=== PATIENT | female | born 1980 | race Caucasian/White ===

== ENCOUNTER 2016-10-15 09:05 | Day surgery (SDC) | payer OTHER ==
[2016-09-27 11:02] VITALS: BMI 41.1
[~2016-10-15 09:05] MED LIST: LACTATED RINGERS 1,000 ML IV SCH; LIDOCAINE 1% 20 ML VIAL (10MG/ML) FOR IV START INTRADERMA PRN
[2016-10-15] MEDS ORDERED: LIDOCAINE 1% 20 ML VIAL (10MG/ML) FOR IV START SQ ONE (09:28)
[2016-10-15 09:40] VITALS: TEMP 98.8
[2016-10-15] MEDS ORDERED: PROPOFOL 10 MG/ML 20 ML VIAL IV ONE (10:26)
[2016-10-15] MEDS ORDERED: LIDOCAINE 1% INJ 10MG/ML (20 ML MDV) ONE (10:26)
[2016-10-15] MEDS ORDERED: GLYCOPYRROLATE 0.2 MG/ML 2 ML VIAL ONE (10:26)
--- NOTE | 2016-10-15 10:43 | P.PCN ---
Date of Procedure: 10/15/16 Procedure(s) Performed: Procedure: Esophagogastroduodenoscopy and biopsy. Preoperative diagnosis: Chronic reflux symptoms and right upper quadrant pain and belching. Postoperative diagnosis: 1. Small sliding hiatal hernia with no obvious esophagitis or complicated reflux disease. 2. Mild antral gastritis. 3. Multiple biopsies obtained from the duodenum, antrum and esophagus. Preparation and sedation: Was provided by anesthesia. Brief clinical history: The patient is a 36-year-old female who is referred for this evaluation for the above reasons. Apparently, she had a cholecystectomy around a year ago and since that time she has been having belching and right upper quadrant pain in addition to her reflux issues. She has not responded to a variety of acid suppressive regimens. This evaluation is to assess for ulcer disease or other pathology. Procedure: With the patient on her left lateral decubitus position and after informed consent and adequate sedation, I passed the Olympus-GIF 160 video upper endoscope through the cricopharyngeus down the esophagus. GE junction was around 36 cm from the incisors and there was a small sliding hiatal hernia. The endoscope was then passed into the stomach which was insufflated with air and inspected in detail including the retroflex view in the cardia. There was some mottling and erythema in the antrum but no ulcers or erosions. Pyloric channel, duodenal bulb, post bulbar area and descending duodenum appeared within normal limits. Because of her symptoms, I obtained multiple biopsies from the duodenum, antrum and esophagus then the endoscope was withdrawn. The patient tolerated the procedure well. Plan: The patient was reassured. Will await biopsy results. She will follow- up with you as planned and further plans based on her course.
[2016-10-15 11:03] VITALS: BP 106/70; PULSE 98; RESP 18
== END 2016-10-15 11:25 | disposition home or self-care (01) ==
LOC: ORWHC2ENDO 09:05
DX: K44.9 Diaphragmatic hernia without obstruction or gangrene (principal); K29.50 Unspecified chronic gastritis without bleeding; K29.80 Duodenitis without bleeding; K21.0 Gastro-esophageal reflux disease with esophagitis; Z79.84 Long term (current) use of oral hypoglycemic drugs; Z79.1 Long term (current) use of non-steroidal anti-inflammatories (NSAID); Z79.899 Other long term (current) drug therapy; Z88.5 Allergy status to narcotic agent; Z87.891 Personal history of nicotine dependence
CPT/HCPCS: 81025; 88305; 88342; 43239; J2001; J2704

== ENCOUNTER → 2017-09-02 | Outpatient (CLI) | payer OTHER ==
--- NOTE | 2017-09-03 10:29 | MM ---
Reason for exam: screening (asymptomatic). History: Family history of breast cancer in maternal grandmother and breast cancer in maternal aunt. Taking hormonal contraceptives for 3 years. Physical Findings: A clinical breast exam by your physician is recommended on an annual basis and results should be correlated with mammographic findings. MG Screening Mammo w CAD Bilateral CC and MLO view(s) were taken. No prior studies available for comparison. The breast tissue is heterogeneously dense. This may lower the sensitivity of mammography. Benign calcifications bilaterally. No significant changes when compared with prior studies. ASSESSMENT: Benign, BI-RAD 2 RECOMMENDATION: Routine screening mammogram of both breasts in 1 year.
== END | disposition home or self-care (01) ==
LOC: RADMAMWWP 08:16
PROVIDERS: ATTEND Family Medicine
DX: Z12.31 Encounter for screening mammogram for malignant neoplasm of breast (principal)
CPT/HCPCS: 77067

== ENCOUNTER → 2018-02-14 | Outpatient (CLI) | payer OTHER ==
--- NOTE | 2018-02-14 14:50 | US ---
EXAMINATION TYPE: US thyroid st tissue head/neck DATE OF EXAM: 02/14/2018 COMPARISON: Ultrasound 03/19/2016 CLINICAL HISTORY: E04.1 Thyroid Nodule. Follow up thyroid nodule GLAND SIZE: Right Lobe: 4.7 x 1.3 x 1.8 cm Overall Parenchyma: homogenous Left Lobe: 4.7 x 1.0 x 1.6 cm Overall Parenchyma: homogeneous Isthmus Thickness: 0.3 cm NODULES RIGHT: # of nodules measured on right: 1 1. 0.7 X 0.6 x 0.6 cm hypoechoic solid nodule at the mid pole with poorly defined margins; . This nodule is wider than tall and shows no intranodular vascularity. Prior size: 0.7 x 0.5 x 0.6 cm LEFT: # of nodules measured on left: 1 1. 0.6 X 0.4 x 0.6 cm hypoechoic solid nodule at the mid pole with poorly defined margins; . This nodule is wider than tall and shows no intranodular vascularity. Prior size: 0.6 x 0.3 x 0.6 cm ISTHMUS: # of nodules measured in the isthmus: 0 Bilateral neck scanned, no evidence of lymphadenopathy. IMPRESSION: 1. Stable subcentimeter thyroid nodules
== END | disposition home or self-care (01) ==
LOC: RADUSWWP 13:58
PROVIDERS: ATTEND Family Medicine
DX: E04.2 Nontoxic multinodular goiter (principal)
CPT/HCPCS: 76536

== ENCOUNTER → 2019-03-06 | Day surgery (SDC) | payer OTHER ==
[2019-03-05 09:45] VITALS: BMI 41.1
[~2019-03-06] MED LIST changes: -LIDOCAINE 1% 20 ML VIAL (10MG/ML) FOR IV START INTRADERMA PRN; +PROPOFOL 10 MG/ML 20 ML VIAL IV ONE
[2019-03-06 11:08] VITALS: TEMP 97.5
--- NOTE | 2019-03-06 12:18 | P.PCN ---
Date of Procedure: 03/06/19 Procedure(s) Performed: BRIEF HISTORY: Patient is a 39-year-old pleasant white female scheduled for an elective colonoscopy as a part of screening for colorectal neoplasia. Her mother was diagnosed with colon cancer at age 65. PROCEDURE PERFORMED: Colonoscopy with biopsy and snare polypectomy. PREOPERATIVE DIAGNOSIS: Screening for colon cancer/family history of colon cancer. IV sedation per Anesthesia. PROCEDURE: After informed consent was obtained, the patient, was brought into the endoscopy unit. IV sedation was administered by Anesthesia under continuous monitoring. Digital rectal examination was normal. Initially the Olympus CF-160 flexible video colonoscope was then inserted in the rectum, gradually advanced into the cecum without any difficulty. Careful examination was performed as the scope was gradually being withdrawn. Ileocecal valve and the appendiceal orifice were visualized and appeared normal. Prep was excellent. Mucosa of the cecum, ascending colon, transverse colon, descending colon, sigmoid colon, appeared normal. In the proximal rectum there was a 5 mm polyp that was removed by snare polypectomy. Adjacent to this area the mucosa appeared very friable and edematous and the distal rectum there was another area. The mucosa appeared slightly, friable with polypoid-appearing mucosa and multiple biopsies were done from this areas. Retroflexion was performed in the rectum and no lesions were seen. The patient tolerated the procedure well. IMPRESSION: 5 mm proximal rectal polyp status post polypectomy Patchy areas of erythema noted in the distal rectum and proximal rectum with some mucosal friability and polypoid-appearing mucosa status post multiple b iopsies to rule out inflammatory bowel disease RECOMMENDATIONS: Findings of this examination were discussed with the patient as well as a family. She was advised to follow with the biopsy results and she'll be seen in office in 2 weeks. She can have a repeat screening colonoscopy every 5 years..
[2019-03-06 12:22] VITALS: RESP 17
[2019-03-06 12:28] VITALS: BP 113/77; PULSE 88
== END ==
LOC: ORWHC2ENDO 10:23
PROVIDERS: ATTEND Internal Medicine Gastroenterology
DX: Z12.11 Encounter for screening for malignant neoplasm of colon (principal); K62.1 Rectal polyp; K62.6 Ulcer of anus and rectum; Z80.0 Family history of malignant neoplasm of digestive organs; E06.3 Autoimmune thyroiditis; K21.9 Gastro-esophageal reflux disease without esophagitis; Z87.891 Personal history of nicotine dependence; Z90.49 Acquired absence of other specified parts of digestive tract; Z88.5 Allergy status to narcotic agent
CPT/HCPCS: 45385; 45380; 88305; 81025; J2704

== ENCOUNTER 2020-06-02 18:02 | Inpatient (IN) | payer OTHER ==
[2020-06-02] MEDS ORDERED: ACETAMINOPHEN TAB 500 MG TAB PO STA (18:46)
[2020-06-02] MEDS ORDERED: SODIUM CHLORIDE 0.9% 1,000 ML IV STA ×2 (18:46)
[2020-06-02] MEDS ORDERED: IBUPROFEN 800 MG TAB PO STA (18:46)
--- NOTE | 2020-06-02 18:56 | ED ---
Fever HPI - General Chief Complaint: Fever Stated Complaint: covid exposure Time Seen by Provider: 06/02/20 18:45 Source: patient, RN notes reviewed, old records reviewed Mode of arrival: ambulatory Limitations: no limitations - History of Present Illness Initial Comments: This is a 40-year-old female DF for evaluation presents today for evaluation regards to fever bodyaches and pains, nausea no vomiting diarrhea. No known sick contacts or travel history. Some cough persisting cough. Patient has no other significant medical history takes no medications nonsmoker MD Complaint: fever, malaise, weakness, other (Cough) -: days(s) (5) Temperature Source: subjective Associated Symptoms: chills, myalgias, cough, shortness of breath Treatments Prior to Arrival: none - Related Data Home Medications Medication Instructions Recorded Confirmed No Known Home Medications 03/05/19 03/06/19 Allergies Allergy/AdvReac Type Severity Reaction Status Date / Time oxycodone Allergy Rash/Hives Verified 06/02/20 18:32 Review of Systems ROS Statement: Those systems with pertinent positive or pertinent negative responses have been documented in the HPI. ROS Other: All systems not noted in ROS Statement are negative. Past Medical History Past Medical History: GERD/Reflux, Thyroid Disorder Additional Past Medical History / Comment(s): , ELIE'S, endometriosos. History of Any Multi-Drug Resistant Organisms: None Reported Past Surgical History: Cholecystectomy Additional Past Surgical History / Comment(s): colonoscopy Past Anesthesia/Blood Transfusion Reactions: Previous Problems w/ Anesthesia Additional Past Anesthesia/Blood Transfusion Reaction / Comment(s): woke up during last colonoscopy. Past Psychological History: No Psychological Hx Reported Smoking Status: Former smoker Past Alcohol Use History: None Reported Past Drug Use History: None Reported - Past Family History Mother Family Medical History: No Reported History General Exam Limitations: no limitations General appearance: alert, in no apparent distress Head exam: Present: atraumatic, normocephalic, normal inspection Eye exam: Present: normal appearance, PERRL, EOMI. Absent: scleral icterus, conjunctival injection, periorbital swelling ENT exam: Present: normal exam, mucous membranes moist Neck exam: Present: normal inspection. Absent: tenderness, meningismus, lymphadenopathy Respiratory exam: Present: normal lung sounds bilaterally. Absent: respiratory distress, wheezes, rales, rhonchi, stridor Cardiovascular Exam: Present: normal rhythm, tachycardia, normal heart sounds. Absent: systolic murmur, diastolic murmur, rubs, gallop, clicks GI/Abdominal exam: Present: soft, normal bowel sounds. Absent: distended, te nderness, guarding, rebound, rigid Extremities exam: Present: normal inspection, full ROM, normal capillary refill. Absent: tenderness, pedal edema, joint swelling, calf tenderness Back exam: Present: normal inspection Neurological exam: Present: alert, oriented X3, CN II-XII intact Psychiatric exam: Present: normal affect, normal mood Skin exam: Present: warm, dry, intact, normal color. Absent: rash Course Vital Signs 06/02/20 06/02/20 18:27 19:16 Temperature 101.2 F H Pulse Rate 127 H Respiratory 18 18 Rate Blood Pressure 91/61 O2 Sat by Pulse 100 Oximetry - Reevaluation(s) Reevaluation #1: 06/02/20 20:29 Medical record is reviewed Reevaluation #2: 06/02/20 20:29 Patient feels better with fever control and hydration Reevaluation #3: 06/02/20 20:29 [place] with patient regarding findings, questions answered Medical Decision Making - Medical Decision Making 40 female DF for evaluation patient has bilateral pneumonia fever rule out covert bodyaches and pains. Patient will be admitted for antibiotics, coronavirus testing - Lab Data Result diagrams: 06/02/20 19:06 06/02/20 19:06 Lab Results 06/02/20 06/02/20 06/02/20 Range/Units 19:06 19:06 19:06 WBC 3.8 (3.8-10.6) k/uL RBC 4.18 (3.80-5.40) m/uL Hgb 9.7 L (11.4-16.0) gm/dL Hct 31.6 L (34.0-46.0) % MCV 75.7 L (80.0-100.0) fL MCH 23.3 L (25.0-35.0) pg MCHC 30.7 L (31.0-37.0) g/dL RDW 13.1 (11.5-15.5) % Plt Count 320 (150-450) k/uL Neutrophils % 62 % Lymphocytes % 32 % Monocytes % 4 % Eosinophils % 0 % Basophils % 0 % Neutrophils # 2.3 (1.3-7.7) k/uL Lymphocytes # 1.2 (1.0-4.8) k/uL Monocytes # 0.2 (0-1.0) k/uL Eosinophils # 0.0 (0-0.7) k/uL Basophils # 0.0 (0-0.2) k/uL Hypochromasia Marked Poikilocytosis Slight PT 10.0 (9.0-12.0) sec INR 1.0 (<1.2) APTT 26.7 (22.0-30.0) sec Sodium 134 L (137-145) mmol/L Potassium 3.6 (3.5-5.1) mmol/L Chloride 100 (98-107) mmol/L Carbon Dioxide 24 (22-30) mmol/L Anion Gap 10 mmol/L BUN 8 (7-17) mg/dL Creatinine 0.75 (0.52-1.04) mg/dL Est GFR (CKD-EPI)AfAm >90 (>60 ml/min/1.73 sqM) Est GFR (CKD-EPI)NonAf >90 (>60 ml/min/1.73 sqM) Glucose 103 H (74-99) mg/dL Plasma Lactic Acid Jerel (0.7-2.0) mmol/L Calcium 8.2 L (8.4-10.2) mg/dL Magnesium 2.1 (1.6-2.3) mg/dL Total Bilirubin 0.2 (0.2-1.3) mg/dL AST 31 (14-36) U/L ALT 25 (4-34) U/L Alkaline Phosphatase 73 (38-126) U/L Lactate Dehydrogenase 430 (313-618) U/L C-Reactive Protein 11.1 H (<10.0) mg/L Total Protein 6.6 (6.3-8.2) g/dL Albumin 3.8 (3.5-5.0) g/dL 06/02/20 Range/Units 19:06 WBC (3.8-10.6) k/uL RBC (3.80-5.40) m/uL Hgb (11.4-16.0) gm/dL Hct (34.0-46.0) % MCV (80.0-100.0) fL MCH (25.0-35.0) pg MCHC (31.0-37.0) g/dL RDW (11.5-15.5) % Plt Count (150-450) k/uL Neutrophils % % Lymphocytes % % Monocytes % % Eosinophils % % Basophils % % Neutrophils # (1.3-7.7) k/uL Lymphocytes # (1.0-4.8) k/uL Monocytes # (0-1.0) k/uL Eosinophils # (0-0.7) k/uL Basophils # (0-0.2) k/uL Hypochromasia Poikilocytosis PT (9.0-12.0) sec INR (<1.2) APTT (22.0-30.0) sec Sodium (137-145) mmol/L Potassium (3.5-5.1) mmol/L Chloride (98-107) mmol/L Carbon Dioxide (22-30) mmol/L Anion Gap mmol/L BUN (7-17) mg/dL Creatinine (0.52-1.04) mg/dL Est GFR (CKD-EPI)AfAm (>60 ml/min/1.73 sqM) Est GFR (CKD-EPI)NonAf (>60 ml/min/1.73 sqM) Glucose (74-99) mg/dL Plasma Lactic Acid Jerel 0.8 (0.7-2.0) mmol/L Calcium (8.4-10.2) mg/dL Magnesium (1.6-2.3) mg/dL Total Bilirubin (0.2-1.3) mg/dL AST (14-36) U/L ALT (4-34) U/L Alkaline Phosphatase (38-126) U/L Lactate Dehydrogenase (313-618) U/L C-Reactive Protein (<10.0) mg/L Total Protein (6.3-8.2) g/dL Albumin (3.5-5.0) g/dL - EKG Data -: EKG Interpreted by Me (Injury shows sinus tachycardia 108 HI 150 QRS 92 QTC 452) - Radiology Data Radiology results: report reviewed (Chest x-rays positive for bilateral pneumonia), image reviewed Disposition Clinical Impression: Bilateral pneumonia, Fever Narrative: ro COVID Disposition: ADMITTED IP TO THIS [facility] Condition: Fair Referrals: Ayden Rankin MD [Primary Care Provider] - 1-2 days
[2020-06-02 19:30] LABS: Basophils % (A) 0 %; Eosinophils % (A) 0 %; HCT 31.6 % (34.0-46.0); HGB 9.7 gm/dL (11.4-16.0); Hypochromasia Marked; Lymphocytes # (A) 1.2 k/uL (1.0-4.8); Lymphocytes % (A) 32 %; MCH 23.3 pg (25.0-35.0); MCHC 30.7 g/dL (31.0-37.0); MCV 75.7 fL (80.0-100.0); Mean Platelet Volume 6.9; Monocytes # (A) 0.2 k/uL (0-1.0); Monocytes % (A) 4 %; Neutrophils # (A) 2.3 k/uL (1.3-7.7); Neutrophils % (A) 62 %; Platelet Count 320 k/uL (150-450); Poikilocytosis Slight; RBC 4.18 m/uL (3.80-5.40); RDW 13.1 % (11.5-15.5); WBC 3.8 k/uL (3.8-10.6)
[2020-06-02 19:34] LABS: Partial Thromboplastin Time 26.7 sec (22.0-30.0)
[2020-06-02 19:36] LABS: ALT 25 U/L (4-34); AST 31 U/L (14-36); African American GFR (CKD) >90 (>60 ml/min/1.73 sqM); Albumin 3.8 g/dL (3.5-5.0); Alkaline Phosphatase 73 U/L (38-126); Anion Gap 10 mmol/L; Blood Urea Nitrogen 8 mg/dL (7-17); C Reactive Protein 11.1 mg/L (<10.0); Calcium 8.2 mg/dL (8.4-10.2); Carbon Dioxide 24 mmol/L (22-30); Chloride 100 mmol/L (98-107); Glucose 103 mg/dL (74-99); LDH 430 U/L (313-618); Magnesium 2.1 mg/dL (1.6-2.3); Non-African American GFR(CKD) >90 (>60 ml/min/1.73 sqM); Potassium 3.6 mmol/L (3.5-5.1); Sodium 134 mmol/L (137-145); Total Bilirubin 0.2 mg/dL (0.2-1.3); Total Protein 6.6 g/dL (6.3-8.2)
--- NOTE | 2020-06-02 20:07 | XR ---
EXAMINATION: XR chest 1V portable DATE AND TIME: 06/02/2020 7:40 PM CLINICAL INDICATION: PHH; Suspected COVID-19 pneumonia TECHNIQUE: AP upright portable COMPARISON: None FINDINGS: The hemidiaphragms are elevated, consistent with low lung inflation at the moment of X-ray exposure. There are a few scattered small added ill-defined opacities, left greater than right. These are nonsp ecific radiographic findings which could represent subsegmental atelectasis vs. developing multifocal bronchopneumonia. The pleural spaces are negative. The cardiac silhouette is not enlarged. The remainder of the mediastinal silhouette is unremarkable. The skeletal structures and soft tissues are negative for acute findings. IMPRESSION: A few scattered bilateral pulmonary ill-defined opacities, as discussed.
[2020-06-02] MEDS ORDERED: ALBUTEROL NEBULIZED 2.5 MG/3 ML INHALATION PRN (20:23)
[2020-06-02] MEDS ORDERED: PNEUMONIA PROTOCOL UTILIZED 1 EACH MISC PO PRN (20:23)
[2020-06-02] MEDS ORDERED: AZITHROMYCIN 500 MG in SODIUM CHLORIDE 0.9% 250 ML IVPB STA (20:23)
[2020-06-02] MEDS ORDERED: ONDANSETRON 4 MG/2 ML VIAL IVP STA (22:19)
[2020-06-02] MEDS: SODIUM CHLORIDE 0.9% 1,000 ML IV SCH (23:00)
[2020-06-03] MEDS: SODIUM CHLORIDE 0.9% 1,000 ML IV SCH ×2 (04:17→19:33)
[2020-06-03] MEDS: ACETAMINOPHEN TAB 500 MG TAB PO PRN ×4 (04:22→22:53)
--- NOTE | 2020-06-03 08:18 | XR ---
EXAMINATION TYPE: XR chest 1V portable DATE OF EXAM: 06/03/2020 COMPARISON: Prior chest x-ray 06/02/2020 HISTORY: Pneumonia TECHNIQUE: Single frontal view of the chest is obtained. FINDINGS: There is no significant interval change. No pneumothorax or pleural effusion. Heart size i s stable. Lung volumes are low. Patchy density persists within the lungs. IMPRESSION: Correlate for pneumonia, edema.
[2020-06-03] MEDS: ENOXAPARIN 40 MG/0.4 ML SYRINGE SQ SCH (08:19)
--- NOTE | 2020-06-03 13:30 | P.CNPUL ---
History of Present Illness Consult date: 06/03/20 Requesting physician: Alonso Pink Reason for consult: cough, other Chief complaint: Cough, fever History of present illness: 40-year-old white female patient with past medical history of Leigh's thyroiditis, former smoker, endometriosis, presented for evaluation of cough, fever, body aches, nausea, to the emergency department on 06/02/2020. Patient's onset of symptoms was last Saturday 6 days ago. Apparently patient's was tested for COVID 19 on outpatient basis, though he was asymptomatic, but didn't have a positive result. He works for the [employer]. Patient was febrile in the emergency department with a temp of 101.2F, O2 sat was 98-100 percent on room air, no difficulty breathing, chest x-ray showed few scattered bilateral pulmonary opacities. EKG showed sinus tach. Labs showed a white blood cell count 3.8, hemoglobin is 9.7, INR is 1.0, sodium is 134, and the rest the electrolytes and renal profile were unremarkable. Plasma lactic acid 0.8. LDH was normal at 430, LFTs were within normal limits, CRP was 11, influenza screen was negative. She was started on combination of azithromycin and Rocephin for possibility of pneumonia, she was given some IV hydration, COVID 19 PCR test is pending at this time Review of Systems All systems: negative Constitutional: Reports malaise, Reports weakness, Denies chills, Denies fever Eyes: denies blurred vision, denies pain Ears, nose, mouth and throat: Denies headache, Denies sore throat Cardiovascular: Denies chest pain, Denies shortness of breath Respiratory: Reports cough Gastrointestinal: Denies abdominal pain, Denies diarrhea, Denies nausea, Denies vomiting Genitourinary: Denies dysuria, Denies hematuria Musculoskeletal: Denies myalgias Integumentary: Denies pruritus, Denies rash Neurological: Denies numbness, Denies weakness Psychiatric: Denies anxiety, Denies depression Endocrine: Denies fatigue, Denies weight change Past Medical History Past Medical History: GERD/Reflux, Thyroid Disorder Additional Past Medical History / Comment(s): Hashimotos, endometriosos. History of Any Multi-Drug Resistant Organisms: None Reported Past Surgical History: Cholecystectomy Additional Past Surgical History / Comment(s): colonoscopy Past Anesthesia/Blood Transfusion Reactions: Previous Problems w/ Anesthesia Additional Past Anesthesia/Blood Transfusion Reaction / Comment(s): woke up during last colonoscopy. Past Psychological History: No Psychological Hx Reported Smoking Status: Former smoker Past Alcohol Use History: None Reported Additional Past Alcohol Use History / Comment(s): STATES QUIT APPROX 2011, SMOKED 1PPD SINCE AGE 14 Past Drug Use History: None Reported - Past Family History Mother Family Medical History: No Reported History Medications and Allergies Home Medications Medication Instructions Recorded Confirmed Type No Known Home Medications 03/05/19 06/02/20 History Allergies Allergy/AdvReac Type Severity Reaction Status Date / Time oxycodone Allergy Rash/Hives Verified 06/02/20 20:35 Physical Exam Vitals: Vital Signs Temp Pulse Pulse Resp BP BP Pulse Ox 06/03/20 08:24 97 20 06/03/20 07:00 100.0 F H 97 20 99/65 95 06/03/20 01:45 98.1 F 88 20 94/60 98 06/02/20 22:40 98.2 F 84 20 101/69 94 L 06/02/20 22:27 98.9 F 68 18 122/68 98 06/02/20 20:32 99.0 F 82 18 136/78 98 06/02/20 19:16 18 06/02/20 18:27 101.2 F H 127 H 18 91/61 100 Intake and Output 06/02/20 06/03/20 06/03/20 22:59 06:59 14:59 Intake Total 200 Balance 200 Intake: Oral 200 Other: Voiding Method Toilet Toilet # Voids 1 Weight 108.862 kg GENERAL EXAM: Alert, very pleasant, obese white female on room air, with a pulse ox of 98%, comfortable in no apparent distress. HEAD: Normocephalic/atraumatic. EYES: Normal reaction of pupils, equal size. Conjunctiva pink, sclera white. NOSE: Clear with pink turbinates. THROAT: No erythema or exudates. NECK: No masses, no JVD, no thyroid enlargement, no adenopathy. CHEST: No chest wall deformity. Symmetrical expansion. LUNGS: Equal air entry with no crackles, wheeze, rhonchi or dullness. CVS: Regular rate and rhythm, normal S1 and S2, no gallops, no murmurs, no rubs ABDOMEN: Soft, nontender. No hepatosplenomegaly, normal bowel sounds, no guarding or rigidity. EXTREMITIES: No clubbing, no edema, no cyanosis, 2+ pulses and upper and lower extremities. MUSCULOSKELETAL: Muscle strength and tone normal. SPINE: No scoliosis or deformity SKIN: No rashes CENTRAL NERVOUS SYSTEM: Alert and oriented -3. No focal deficits, tone is normal in all 4 extremities. PSYCHIATRIC: Alert and oriented -3. Appropriate affect. Intact judgment and insight. Results - Laboratory Findings CBC and BMP: 06/02/20 19:06/02/20 19: PT/INR, D-dimer PT 10.0 sec (9.0-12.0) 06/02/20 19: INR 1.0 (<1.2) 06/02/20 19: Abnormal lab findings: Abnormal Labs 06/02/20 06/02/20 19: 19:06 Hgb 9.7 L Hct 31.6 L MCV 75.7 L MCH 23.3 L MCHC 30.7 L Sodium 134 L Glucose 103 H Calcium 8.2 L C-Reactive Protein 11.1 H - Diagnostic Findings Chest x-ray: report reviewed, image reviewed Additional studies: EKG reviewed Assessment and Plan Plan: Assessment: #1. Cough, fever, weakness, chest x-ray showing scattered bilateral pulmonary opacities, possibly related to community-acquired pneumonia, or COVID 19 pneumonitis, influenza was ruled out #2. History of Leigh's thyroiditis #3. History of endometriosis #4. Former smoker Plan: We'll continue with current antibiotic coverage, awaiting results of the COVID 19 testing, influenza has been ruled out, febrile pattern has improved, we'll add Decadron, continue with Norflex dose of Lovenox, we'll continue to follow I performed a history & physical examination of the patient and discussed their management with my nurse practitioner, Sydney Arias. I reviewed the nurse practitioner's note and agree with the documented findings and plan of care. Lung sounds are positive for diminished breath sounds The findings and the impression was discussed with the patient. I attest to the documentation by the nurse practitioner. Time with Patient: Greater than 30
[2020-06-03] MEDS: dexAMETHasone 4 MG TAB PO SCH (14:11)
--- NOTE | 2020-06-03 16:44 | P.HPIM ---
History of Present Illness H&P Date: 06/03/20 Chief Complaint: Fever History of presenting complaint: This is a pleasant 40-year-old patient of Dr. Ayden Rankin. Chronic stable medical conditions include GERD, Leigh's, endometriosis. Patient without any medications. Patient 5 days ago started off with fever. Running high fevers. Dry cough. Headaches. Patient's and 2 daughters ventilator get tested for COVID today and came back positive. Patient has lost a sense of smell and taste. Decreased appetite. Had some loose stools. Tired. COVID 19 testing pending. Review of systems: GEN.: Fever, tired EYES: None HEENT: Headaches NECK: None RESPIRATORY: Dry cough CARDIOVASCULAR: None GASTROINTESTINAL: Mild diarrhea GENITOURINARY: None MUSCULOSKELETAL: None LYMPHATICS: None HEMATOLOGICAL: None PSYCHIATRY: None NEUROLOGICAL: None Past medical history to include: GERD, Leigh's, endometriosis, Social history: Patient smoked a pack a day since 2014. She stopped in 2011. No alcohol. Ma rried. Family history: Reviewed, noncontributory to presentation Physical examination: VITAL SIGNS: Temperature 101.2, 127, 18, 91/61, 100% room air GENERAL: BMI 41.2, sitting up in chair, tired awake. EYES: Pupils equal. Conjunctiva normal. HEENT: External appearance of nose and ears normal, oral cavity grossly normal. NECK: JVD not raised; masses not palpable. HEART: First and second heart sounds are normal; no edema. LUNGS: Respiratory rate normal; clear to auscultation. ABDOMEN: Soft, nontender, liver spleen not palpable, no masses palpable. PSYCH: Alert and oriented x3; mood and affect normal. NEUROLOGICAL: Cranial nerves grossly intact; no facial asymmetry, power and s ensation grossly intact. LYMPHATICS: No lymph nodes palpable in the axilla and neck INVESTIGATIONS, reviewed in the clinical context: White count 3.8 hemoglobin 9.7 platelets 320 potassium 3.6 creatinine 0.75 LDH 4:30 CRP 11.1 Influenza A and B both negative EKG tracing personally reviewed by me-normal sinus rhythm Chest x-ray film personally reviewed by me-scattered densities Assessment: -This is a patient presents with 5 days of fever cough loss of smell and taste. Patient's 2 daughters not symptomatic Tested positive for COVID today. Patient is also the same are pending. Patient's has got checks x-ray findings though she has no hypoxia. -Morbid obesity BMI 41.2 -Anosmia -Sepsis from above pneumonia Plan: Patient started on Ventolin, Zithromax, ceftriaxone, dexamethasone, subcu Lovenox IV fluids zinc. Care was discussed with the patient. COVID 19 results are pending. Pulmonary and ID consulted. Patient is in droplet precautions Past Medical History Past Medical History: GERD/Reflux, Thyroid Disorder Additional Past Medical History / Comment(s): Hashimotos, endometriosos. History of Any Multi-Drug Resistant Organisms: None Reported Past Surgical History: Cholecystectomy Additional Past Surgical History / Comment(s): colonoscopy Past Anesthesia/Blood Transfusion Reactions: Previous Problems w/ Anesthesia Additional Past Anesthesia/Blood Transfusion Reaction / Comment(s): woke up during last colonoscopy. Past Psychological History: No Psychological Hx Reported Smoking Status: Former smoker Past Alcohol Use History: None Reported Additional Past Alcohol Use History / Comment(s): STATES QUIT APPROX 2011, SMOKED 1PPD SINCE AGE 14 Past Drug Use History: None Reported - Past Family History Mother Family Medical History: No Reported History Medications and Allergies Home Medications Medication Instructions Recorded Confirmed Type No Known Home Medications 03/05/19 06/02/20 History Allergies Allergy/AdvReac Type Severity Reaction Status Date / Time oxycodone Allergy Rash/Hives Verified 06/02/20 20:35 Physical Exam Vitals: Vital Signs Temp Pulse Pulse Resp BP BP Pulse Ox 06/03/20 08:24 97 20 06/03/20 07:00 100.0 F H 97 20 99/65 95 06/03/20 01:45 98.1 F 88 20 94/60 98 06/02/20 22:40 98.2 F 84 20 101/69 94 L 06/02/20 22:27 98.9 F 68 18 122/68 98 06/02/20 20:32 99.0 F 82 18 136/78 98 06/02/20 19:16 18 06/02/20 18:27 101.2 F H 127 H 18 91/61 100 Intake and Output 06/02/20 06/03/20 06/03/20 22:59 06:59 14:59 Intake Total 200 Balance 200 Intake: Oral 200 Other: Voiding Method Toilet Toilet # Voids 1 Weight 108.862 kg Results CBC & Chem 7: 06/02/20 19:06 06/02/20 19:06 Labs: Abnormal Lab Results - Last 24 Hours (Table) 06/02/20 06/02/20 Range/Units 19:06 19:06 Hgb 9.7 L (11.4-16.0) gm/dL Hct 31.6 L (34.0-46.0) % MCV 75.7 L (80.0-100.0) fL MCH 23.3 L (25.0-35.0) pg MCHC 30.7 L (31.0-37.0) g/dL Sodium 134 L (137-145) mmol/L Glucose 103 H (74-99) mg/dL Calcium 8.2 L (8.4-10.2) mg/dL C-Reactive Protein 11.1 H (<10.0) mg/L Thrombosis Risk Factor Assmnt - Choose All That Apply Any of the Below Risk Factors Present?: Yes Each Factor Represents 1 point: Age 41-60 years Other Risk Factors: No Other congenital or acquired thrombophilia - If yes, enter type in comment: No Thrombosis Risk Factor Assessment Total Risk Factor Score: 1 Thrombosis Risk Factor Assessment Level: Low Risk
[2020-06-03] MEDS ORDERED: AZITHROMYCIN 500 MG TAB PO SCH (21:00)
[2020-06-04] MEDS: SODIUM CHLORIDE 0.9% 1,000 ML IV SCH (01:13)
[2020-06-04] MEDS: dexAMETHasone 4 MG TAB PO SCH (07:14)
[2020-06-04] MEDS: ENOXAPARIN 40 MG/0.4 ML SYRINGE SQ SCH (07:15)
[2020-06-04] MEDS: ACETAMINOPHEN TAB 500 MG TAB PO PRN ×2 (07:31→11:04)
[2020-06-04 07:49] VITALS: BP 106/68; PULSE 92; RESP 18
--- NOTE | 2020-06-04 08:45 | P.CONS ---
History of Present Illness - Reason for Consult Consult date: 06/03/20 Fever Requesting physician: Alonso Pink - Chief Complaint Fever and body aches x 1 week - History of Present Illness Patient is 40-year-old female presenting to the ER at [facility] last evening for evaluation of fever and body aches and pains symptom has been going on for about a week started on Saturday, patient denies having any headache or significant URI symptoms patient did have mild cough which is dry in nature, it denies having any shortness of breath no nausea no vomiting and no abdominal pain she did have diarrhea, if the symptoms the patient was evaluated by the ER physician on arrival to the ER the patient did have a fever of 101F patient did have a normal white count and no lymphopenia, the patient did have normal liver enzymes CRP is mildly elevated to 11.1, lactic acid was normal, chest x-ray did show scattered bilateral pulmonary and defined opacities patient has been admitted to the hospital covid 19 test is pending, patient has been evaluated by pulmonary patient was started on Rocephin and Zithromax dexamethasone infectious disease was consulted for further management of antibiotic therapy Review of Systems Positive point has been mentioned in the HPI rest of the systems are negative Past Medical History Past Medical History: GERD/Reflux, Thyroid Disorder Additional Past Medical History / Comment(s): Hashimotos, endometriosos. History of Any Multi-Drug Resistant Organisms: None Reported Past Surgical History: Cholecystectomy Additional Past Surgical History / Comment(s): colonoscopy Past Anesthesia/Blood Transfusion Reactions: Previous Problems w/ Anesthesia Additional Past Anesthesia/Blood Transfusion Reaction / Comm: woke up during last colonoscopy. Past Psychological History: No Psychological Hx Reported Smoking Status: Former smoker Past Alcohol Use History: None Reported Additional Past Alcohol Use History / Comment(s): STATES QUIT APPROX 2011, SMOKED 1PPD SINCE AGE 14 Past Drug Use History: None Reported - Past Family History Mother Family Medical History: No Reported History Medications and Allergies Home Medications Medication Instructions Recorded Confirmed Type No Known Home Medications 03/05/19 06/02/20 History Allergies Allergy/AdvReac Type Severity Reaction Status Date / Time oxycodone Allergy Rash/Hives Verified 06/02/20 20:35 Physical Exam Vitals: Vital Signs Temp Pulse Pulse Resp BP BP Pulse Ox 06/03/20 08:24 97 20 06/03/20 07:00 100.0 F H 97 20 99/65 95 06/03/20 01:45 98.1 F 88 20 94/60 98 06/02/20 22:40 98.2 F 84 20 101/69 94 L 06/02/20 22:27 98.9 F 68 18 122/68 98 06/02/20 20:32 99.0 F 82 18 136/78 98 06/02/20 19:16 18 06/02/20 18:27 101.2 F H 127 H 18 91/61 100 Intake and Output 06/03/20 06/03/20 06/03/20 06:59 14:59 22:59 Intake Total 200 700 Balance 200 700 Intake: Intake, IV Titration 700 Amount Sodium Chloride 0.9% 1, 700 000 ml @ 100 mls/hr IV . Q10H [facility] Rx#:[id number] Oral 200 Other: Voiding Method Toilet Toilet # Voids 1 GENERAL DESCRIPTION: Middle-aged female lying in bed, no distress. No tachypnea or accessory muscle of respiration use. HEENT: Shows Pallor , no scleral icterus. Oral mucous membrane is dry. No pharyngeal erythema or thrush NECK: Trachea central, no thyromegaly. LUNGS: Unlabored breathing. Decreased intensity of breath sounds. No wheeze or crackle. HEART: S1, S2, regular rate and rhythm. No loud murmur ABDOMEN: Soft, no tenderness , guarding or rigidity, no organomegaly EXTREMITIES: No edema of feet. SKIN: No rash, no masses palpable. NEUROLOGICAL: The patient is awake, alert, oriented x3, mood and affect normal. Results CBC & Chem 7: 06/02/20 19:06 06/02/20 19:06 Labs: Abnormal Lab Results - Last 24 Hours (Table) 06/02/20 06/02/20 Range/Units 19:06 19:06 Hgb 9.7 L (11.4-16.0) gm/dL Hct 31.6 L (34.0-46.0) % MCV 75.7 L (80.0-100.0) fL MCH 23.3 L (25.0-35.0) pg MCHC 30.7 L (31.0-37.0) g/dL Sodium 134 L (137-145) mmol/L Glucose 103 H (74-99) mg/dL Calcium 8.2 L (8.4-10.2) mg/dL C-Reactive Protein 11.1 H (<10.0) mg/L Assessment and Plan Assessment: 1- patient presented to the hospital with fever body aches and dry cough in this patient who did have exposure to the who did tested positive for covid 19, likely representing acute covid 19 infection, however patient currently does not have shortness of breath and no need for supplemental oxygen (1) COVID-19 Current Visit: Yes Status: Acute Code(s): U07.1 - COVID-19 SNOMED Code(s): 307341288 (2) Fever Current Visit: Yes Status: Acute Code(s): R50.9 - FEVER, UNSPECIFIED SNOMED Code(s): 799367255 Plan: 1- patient will be treated with dexamethasone Lovenox Zinc and Zithromax 2- await covid 19 3- droplet isolation 4-if the patient drops her O2 sats or worsening respiratory symptoms she will be started on Remdisivir We will follow on clinical condition and cultures to further adjust medication if needed Thank you for this consultation will follow this patient with you Time with Patient: Greater than 30
[2020-06-04] MEDS ORDERED: ZINC SULFATE 220 MG CAP PO SCH (09:00)
[2020-06-04] MEDS ORDERED: ONDANSETRON 4 MG/2 ML VIAL IVP PRN (09:29)
[2020-06-04] MEDS ORDERED: Potassium Replacement Protocol 1 EACH MISC MISCELLANE PRN (09:31)
[2020-06-04] MEDS ORDERED: Magnesium Replacement Protocol 1 EACH MISC MISCELLANE PRN (09:31)
[2020-06-04 10:01] LABS: ALT 32 U/L (4-34); AST 40 U/L (14-36); African American GFR (CKD) >90 (>60 ml/min/1.73 sqM); Albumin 3.3 g/dL (3.5-5.0); Albumin/Globulin Ratio 1.3; Alkaline Phosphatase 67 U/L (38-126); Anion Gap 7 mmol/L; Blood Urea Nitrogen 6 mg/dL (7-17); C Reactive Protein 25.7 mg/L (<10.0); Calcium 7.8 mg/dL (8.4-10.2); Carbon Dioxide 23 mmol/L (22-30); Chloride 106 mmol/L (98-107); Globulin 2.6 g/dL; Glucose 108 mg/dL (74-99); LDH 513 U/L (313-618); Magnesium 2.1 mg/dL (1.6-2.3); Non-African American GFR(CKD) >90 (>60 ml/min/1.73 sqM); Potassium 3.6 mmol/L (3.5-5.1); Sodium 136 mmol/L (137-145); Total Bilirubin 0.2 mg/dL (0.2-1.3); Total Protein 5.9 g/dL (6.3-8.2)
[2020-06-04 10:04] LABS: Basophils % (A) 1 %; Eosinophils % (A) 1 %; HCT 27.1 % (34.0-46.0); HGB 8.5 gm/dL (11.4-16.0); Hypochromasia Marked; Lymphocytes # (A) 0.9 k/uL (1.0-4.8); Lymphocytes % (A) 24 %; MCH 24.3 pg (25.0-35.0); MCHC 31.5 g/dL (31.0-37.0); MCV 77.3 fL (80.0-100.0); Mean Platelet Volume 6.9; Monocytes # (A) 0.1 k/uL (0-1.0); Monocytes % (A) 3 %; Neutrophils # (A) 2.7 k/uL (1.3-7.7); Neutrophils % (A) 70 %; Platelet Count 288 k/uL (150-450); Poikilocytosis Slight; RDW 13.3 % (11.5-15.5); WBC 3.8 k/uL (3.8-10.6)
[2020-06-04] MEDS ORDERED: SODIUM CHLORIDE 0.9% 1,000 ML IV ONE (10:52)
[2020-06-04 11:13] VITALS: TEMP 100
--- NOTE | 2020-06-04 12:15 | P.PN ---
Subjective Progress Note Date: 06/04/20 Principal diagnosis: CoVID 19 pneumonitis 40-year-old white female patient with past medical history of Leigh's thyroiditis, former smoker, endometriosis, presented for evaluation of cough, fever, body aches, nausea, to the emergency department on 06/02/2020. Patient's onset of symptoms was last Saturday 6 days ago. Apparently patient's was tested for COVID 19 on outpatient basis, though he was asymptomatic, but didn't have a positive result. He works for the [employer]. Patient was febrile in the emergency department with a temp of 101.2F, O2 sat was 98-100 percent on room air, no difficulty breathing, chest x-ray showed few scattered bilateral pulmonary opacities. EKG showed sinus tach. Labs showed a white blood cell count 3.8, hemoglobin is 9.7, INR is 1.0, sodium is 134, and the rest the electrolytes and renal profile were unremarkable. Plasma lactic acid 0.8. LDH was normal at 430, LFTs were within normal limits, CRP was 11, influenza screen was negative. She was started on combination of azithromycin and Rocephin for possibility of pneumonia, she was given some IV hydration, COVID 19 PCR test is pending at this time The patient is seen today 06/04/2020 in follow-up on the regular medical floor. She is currently sitting up in bed. Awake and alert in no acute distress. Continues with a loose nonproductive cough. Continues with fevers at 101 earlier this morning. Currently 100. Blood cultures pending. She is maintai kellee O2 saturations in the 90s on room air. White count 3.8. Hemoglobin 8.5. Platelets 288. D-dimer 0.19. Sodium 136. Potassium 3.6. Creatinine 0.6. LDH 513. C-reactive protein 25.7. Coronavirus PCR positive. She states her and 17-year-old daughter are positive at home as well. Objective - Vital Signs Vital signs: Vital Signs Temp 100 F H 06/04/20 11:13 Pulse 92 06/04/20 07:00 Resp 18 06/04/20 07:00 BP 106/68 06/04/20 07:00 Pulse Ox 92 L 06/04/20 07:00 Intake & Output 06/03/20 06/04/20 06/04/20 18:59 06:59 18:59 Intake Total 700 200 Balance 700 200 Intake: Intake, IV Titration 700 Amount Sodium Chloride 0.9% 1, 700 000 ml @ 100 mls/hr IV . Q10H [facility] Rx#:[id number] Oral 200 Other: Voiding Method Toilet Toilet Toilet # Voids 1 - Exam GENERAL EXAM: Alert, active, pleasant 40-year-old female patient, on room air, comfortable in no apparent distress. HEAD: Normocephalic. EYES: Normal reaction of pupils, equal size. NOSE: Clear with pink turbinates. THROAT: No erythema or exudates. NECK: No masses, no JVD. CHEST: No chest wall deformity. LUNGS: Equal air entry with no crackles, wheeze, rhonchi or dullness. CVS: S1 and S2 normal with no audible murmur, regular rhythm. ABDOMEN: No hepatosplenomegaly, normal bowel sounds, no guarding or rigidity. SPINE: No scoliosis or deformity SKIN: No rashes CENTRAL NERVOUS SYSTEM: No focal deficits, tone is normal in all 4 extremities. EXTREMITIES: There is no peripheral edema. No clubbing, no cyanosis. Peripheral pulses are intact. - Labs CBC & Chem 7: 06/04/20 09:35 06/04/20 09:35 Labs: Abnormal Lab Results - Last 24 Hours (Table) 06/02/20 06/04/20 06/04/20 Range/Units 20:24 09:35 09:35 RBC 3.50 L (3.80-5.40) m/uL Hgb 8.5 L (11.4-16.0) gm/dL Hct 27.1 L (34.0-46.0) % MCV 77.3 L (80.0-100.0) fL MCH 24.3 L (25.0-35.0) pg Lymphocytes # 0.9 L (1.0-4.8) k/uL Sodium 136 L (137-145) mmol/L BUN 6 L (7-17) mg/dL Glucose 108 H (74-99) mg/dL Calcium 7.8 L (8.4-10.2) mg/dL AST 40 H (14-36) U/L C-Reactive Protein 25.7 H (<10.0) mg/L Total Protein 5.9 L (6.3-8.2) g/dL Albumin 3.3 L (3.5-5.0) g/dL Coronavirus (PCR) Detected H (Not Detected) Microbiology - Last 24 Hours (Table) 06/02/20 19:06 Blood Culture - Preliminary Blood No Growth after 24 hours Assessment and Plan Assessment: 1 Acute CoVID 19 pneumonitis 2 History of Leigh's thyroiditis 3 History of endometriosis. 4 Former smoker Plan: The patient was seen and evaluated by Dr. Fofana She is quite anxious to go home Cleared for discharge from the pulmonary standpoint Complete a ten-day course of dexamethasone Other medications per ID services Remain in quarantine Follow-up with her PCP I, the cosigning physician, performed a history & physical examination of the patient. Lungs sounds are clear. Maintaining good O2 saturations in the 90s on room air. I discussed the assessment and plan of care with my nurse practitioner, Renee Oh. I attest to the above note as dictated by her.
--- NOTE | 2020-06-04 13:49 | P.DS ---
Providers Date of admission: 06/02/20 20:23 Expected date of discharge: 06/04/20 Attending physician: Alonso Pink Consults: 06/02/20 20:23 Consult Physician Routine Consulting Provider: Ira Murillo Consult Reason/Comments: fever Do you want consulting provider notified?: Yes 06/02/20 20:56 Consult Physician Routine Consulting Provider: Jen Fofana Consult Reason/Comments: pna Do you want consulting provider notified?: Yes Primary care physician: Ayden Rankin [facility] Course: tory of presenting complaint: This is a pleasant 40-year-old patient of Dr. Ayden Rankin. Chronic stable medical conditions include GERD, Leigh's, endometriosis. Patient without any medications. Patient 5 days ago started off with fever. Running high fevers. Dry cough. Headaches. Patient's and 2 daughters ventilator get tested for COVID today and came back positive. Patient has lost a sense of smell and taste. Decreased appetite. Had some loose stools. Tired. COVID 19 testing pending. 06/04/20 Testing is positive for Covid 19, she is on room air saturating above 90%, no shortness of breath at rest. Still having loose stools although feels they are improving. Running low-grade fever, heart rate in 90s. Patient is very anxious to be discharged home. Currently on Decadron, she'll continue 10 day course upon discharge. Review of systems: GEN.: Fever, tired EYES: None HEENT: Headaches NECK: None RESPIRATORY: Dry cough CARDIOVASCULAR: None GASTROINTESTINAL: Mild diarrhea GENITOURINARY: None MUSCULOSKELETAL: None LYMPHATICS: None HEMATOLOGICAL: None PSYCHIATRY: None NEUROLOGICAL: None Physical examination: VITAL SIGNS: Temperature 101.2, 127, 18, 91/61, 100% room air GENERAL: BMI 41.2, sitting up in chair, tired awake. EYES: Pupils equal. Conjunctiva normal. HEENT: External appearance of nose and ears normal, oral cavity grossly normal. NECK: JVD not raised; masses not palpable. HEART: First and second heart sounds are normal; no edema. LUNGS: Respiratory rate normal; clear to auscultation. ABDOMEN: Soft, nontender, liver spleen not palpable, no masses palpable. PSYCH: Alert and oriented x3; mood and affect normal. NEUROLOGICAL: Cranial nerves grossly intact; no facial asymmetry, power and sensation grossly intact. LYMPHATICS: No lymph nodes palpable in the axilla and neck Physical exam was deferred to 2 Covid 19 isolation measures, patient was examined by pulmonary Assessment: -Acute Covid 19 pneumonitis -Morbid obesity BMI 41.2 -Loss of taste and smell -Diarrhea: Plan: Patient was asking to be discharged home, has diarrhea but feels is improving. She will continue course of Decadron for 10 days, prescription for Questran will be given for diarrhea. Encouraged adequate oral hydration. Patient Condition at Discharge: Fair Plan - Discharge Summary Discharge Rx Participant: No New Discharge Prescriptions: New dexAMETHasone [Hexadrol] 4 mg PO DAILY #10 tab Cholestyramine (with Sugar) [Questran] 4 gm PO TID PRN #30 packet PRN Reason: Diarrhea Discharge Medication List Cholestyramine (with Sugar) [Questran] 4 gm PO TID PRN #30 packet 06/04/20 [Rx] dexAMETHasone [Hexadrol] 4 mg PO DAILY #10 tab 06/04/20 [Rx] Follow up Appointment(s)/Referral(s): Ayden Rankin MD [Primary Care Provider] - 1 Week Patient Instructions/Handouts: Community Acquired Pneumonia (DC) Discharge Disposition: HOME SELF-CARE
--- NOTE | 2020-06-04 15:03 | PN ---
PROGRESS NOTE DATE OF SERVICE: 06/04/2020 REASON FOR FOLLOWUP: Acute COVID-19 pneumonia. INTERVAL HISTORY: Patient's overall fever pattern has improved though she did have a fever of 101 this morning. The patient is feeling better. She is breathing comfortably. The patient's cough has decreased in intensity and is mostly dry in nature. No chest pain. No nausea, no vomiting. No abdominal pain, no diarrhea. PHYSICAL EXAMINATION: Blood pressure 106/68 with a pulse of 92, temperature of 100. She is 92% on room air. General description is a middle-aged female up in the bed in no distress. Respiratory system: Unlabored breathing, clear to auscultation. No wheeze or crackle. Heart S1, S2. Regular rate and rhythm. Abdomen is soft, no tenderness. LABS: Hemoglobin 8.5, white count 3.8. BUN of 6, creatinine 0.60. CRP has gone high. IMPRESSION/PLAN: Patient with acute COVID-19 pneumonia/infection. The patient seemed to have shown clinical improvement, though still running a fever. The patient was seen by Pulmonary and and wanted to discharge the patient home. Recommend dexamethasone short course and close outpatient followup. Questions and concerns were answered. MMODL / IJN: [id number] /
[2020-06-04 17:49] LABS: Ferritin 16.7 ng/mL (10.0-291.0)
--- NOTE | 2020-06-06 08:57 | CDI ---
Documentation Clarification Form Date: 06/06/20 From: Miriam Tom Phone: If you have a question about this query, please contact Darlin Medina, Mobility Specialist at [phone] between 8am and 5pm. Admit Date: 06/02/20 Discharge Date:06/04/20 Patient Name: Kristine Parish Visit Number: [id number] ATTENTION: The Clinical Documentation Specialists (CDI) and [facility] Coding Staff appreciate your assistance in clarifying documentation. Please respond to the clarification below the line at the bottom and electronically sign. The CDI & [facility] Coding staff will review the response and follow-up if needed. Please note: Queries are made part of the Legal Health Record. If you have any questions, please contact the author of this message via ITS. Dear Dr. Ramirez The diagnosis sepsis was documented in the H&P, but is not noted in subsequent documentation. History/Risk Factors: Covid pneumonitis Clinical Indicators: Fever, tachycardia WBC: 3.8 Lactic Acid: 0.8 Blood Cultures: No growth Vital Signs on admission: T. 101.2, P. 127, R. 18, BP 91/61 Treatment: IV Rocephin, IV Zithromax Please clarify if the Sepsis was Present/active this admission Treated and resolved this admission Ruled out Other, please specify Clinically unable to determine My assessment is as per my documentation no additional documentation will be provided MTDD
== END 2020-06-04 14:29 | disposition home or self-care (01) | DRG 177 ==
LOC: EC 18:02 → 4SSUR 20:23
PROVIDERS: ADMIT Hospitalist; ATTEND Hospitalist
DX: U07.1 COVID-19 (principal); J12.89 Other viral pneumonia; Z68.41 Body mass index [BMI] 40.0-44.9, adult; E06.3 Autoimmune thyroiditis; E66.01 Morbid (severe) obesity due to excess calories; K21.9 Gastro-esophageal reflux disease without esophagitis; N80.9 Endometriosis, unspecified; Z87.891 Personal history of nicotine dependence; Z88.5 Allergy status to narcotic agent; Z90.49 Acquired absence of other specified parts of digestive tract; Z98.890 Other specified postprocedural states; Z87.19 Personal history of other diseases of the digestive system
CPT/HCPCS: 36415; 71045; 80053; 82728; 83605; 83615; 83735; 85025; 85379; 85610; 85730; 86140; 87040; 87502; 93005; 96361; 96365; 96367; 96375; 99285

== ENCOUNTER 2020-06-06 01:25 | Inpatient (IN) | payer OTHER ==
[2020-06-06] MEDS ORDERED: ACETAMINOPHEN TAB 500 MG TAB PO STA ×2 (01:49→02:03)
[2020-06-06] MEDS ORDERED: IBUPROFEN 600 MG TAB PO STA (01:49)
[2020-06-06] MEDS ORDERED: IBUPROFEN 400 MG TAB PO STA (02:03)
[2020-06-06] MEDS: SODIUM CHLORIDE 0.9% 1,000 ML IV SCH ×3 (02:19→17:16)
[2020-06-06] MEDS: SODIUM CHLORIDE 0.9% 500 ML 500 ML IV SCH (02:20)
--- NOTE | 2020-06-06 02:33 | XR ---
EXAMINATION TYPE: XR chest 1V portable DATE OF EXAM: 06/06/2020 COMPARISON: 06/03/2020 HISTORY: Pneumonia. Fever TECHNIQUE: FINDINGS: There are patchy bilateral peripheral pulmonary airspace infiltrates. Heart size is normal. There is no pleural effusion. There is no gross heart failure. IMPRESSION: Bilateral peripheral pneumonia is slightly worse than last exam.
[2020-06-06 02:36] LABS: Basophils % (A) 0 %; Eosinophils % (A) 0 %; HCT 26.1 % (34.0-46.0); HGB 8.1 gm/dL (11.4-16.0); Hypochromasia Marked; Lymphocytes # (A) 1.2 k/uL (1.0-4.8); Lymphocytes % (A) 22 %; MCH 23.7 pg (25.0-35.0); MCHC 31.1 g/dL (31.0-37.0); MCV 76.3 fL (80.0-100.0); Mean Platelet Volume 7.1; Monocytes # (A) 0.2 k/uL (0-1.0); Monocytes % (A) 3 %; Neutrophils # (A) 4.1 k/uL (1.3-7.7); Neutrophils % (A) 73 %; Platelet Count 314 k/uL (150-450); Poikilocytosis Slight; RBC 3.43 m/uL (3.80-5.40); RDW 13.6 % (11.5-15.5); WBC 5.5 k/uL (3.8-10.6)
[2020-06-06 02:37] LABS: VBG PH 7.47 (7.31-7.41)
--- NOTE | 2020-06-06 02:45 | ED ---
General Adult HPI - General Chief complaint: Shortness of Breath Stated complaint: SOB/Hallucinations Time Seen by Provider: 06/06/20 01:53 Source: patient Mode of arrival: wheelchair Limitations: no limitations - History of Present Illness Initial comments: 40-year-old female patient who recently tested positive for COVID-19 presents to the emergency department for hallucinations and low oxygen saturation. Patient was admitted to the hospital recently and diagnosed with Covid pneumonitis. She was discharged home on a 10 day course of Decadron. Patient states that this evening she was experiencing a "hallucination", states that she kept repeating the same sentence in her head over and over again and could not stop. She states that she had to wake up her significant other. He got her medication for her fever and checked her pulse ox at 83-84%. She states that she has not slept for the last two nights. She has been having symptoms of fever and upper respiratory symptoms since 05/27/20. She was positive for COVID-19 on 06/02 while admitted to the hospital. Patient reports persistent cough and fevers. Denies feeling short of breath. Denies any hemoptysis. Patient denies any recent rash, chest pain, abdominal pain, nausea, vomiting, constipation, back pain, numbness, tingling, dizziness, weakness, hematuria, dysuria, urinary urgency, urinary frequency, headache, visual changes, or any other complaints. - Related Data Previous Rx's Medication Instructions Recorded Cholestyramine (with Sugar) 4 gm PO TID PRN #30 packet 06/04/20 [Questran] dexAMETHasone [Hexadrol] 4 mg PO DAILY #10 tab 06/04/20 Allergies Allergy/AdvReac Type Severity Reaction Status Date / Time oxycodone Allergy Rash/Hives Verified 06/06/20 01:30 Review of Systems ROS Statement: Those systems with pertinent positive or pertinent negative responses have been documented in the HPI. ROS Other: All systems not noted in ROS Statement are negative. Past Medical History Past Medical History: GERD/Reflux, Thyroid Disorder Additional Past Medical History / Comment(s): Hashimotos, endometriosos. covid 19, History of Any Multi-Drug Resistant Organisms: None Reported Past Surgical History: Cholecystectomy Additional Past Surgical History / Comment(s): colonoscopy Past Anesthesia/Blood Transfusion Reactions: Previous Problems w/ Anesthesia Additional Past Anesthesia/Blood Transfusion Reaction / Comment(s): woke up du ring last colonoscopy. Past Psychological History: No Psychological Hx Reported Smoking Status: Former smoker Past Alcohol Use History: None Reported Past Drug Use History: None Reported - Past Family History Mother Family Medical History: No Reported History General Exam Limitations: no limitations General appearance: alert, in no apparent distress, other (This is a well-deve loped, well-nourished adult female patient in no acute distress. Vital signs upon presentation are temperature 101.7F, pulse 109, respirations 22, blood pressure 100/62, pulse ox 93% on room air.) Respiratory exam: Present: normal lung sounds bilaterally. Absent: respiratory distress, wheezes, rales, rhonchi, stridor Cardiovascular Exam: Present: normal rhythm, tachycardia, normal heart sounds. Absent: systolic murmur, diastolic murmur, rubs, gallop, clicks GI/Abdominal exam: Present: soft, normal bowel sounds. Absent: distended, tenderness, guarding, rebound, rigid Neurological exam: Present: alert, oriented X3, CN II-XII intact Psychiatric exam: Present: normal affect, normal mood Skin exam: Present: warm, dry, intact, normal color. Absent: rash Course Vital Signs 06/06/20 01:25 Temperature 101.7 F H Pulse Rate 109 H Respiratory 22 Rate Blood Pressure 100/62 O2 Sat by Pulse 93 L Oximetry EKG Findings - EKG Comments: EKG Findings:: EKG obtained at 02 43 shows normal sinus rhythm with an incomplet e right bundle branch block. Ventricular rate is 93, AR interval 164, QRS duration 96, QT 368, QTC 457. No evidence of ST elevation or depression. Medical Decision Making - Medical Decision Making 40-year-old female patient who recently tested positive for COVID-19 presents to the emergency department today for evaluation of low oxygen and hallucinations. Patient reports her oxygen saturation always between 8384% on room air. Patient arrived to the emergency department oxygen was 93% on room air she was febrile. Labs reviewed and did reveal hemoglobin of 8.1, d-dimer 0.19. VBG shows pH of 7.47, speaks CO2 of 33, HCO3 at 23, sodium is 135, BUN 6, glucose 110, calcium 7.9, AST 49, ALT 48. Chest x-ray showed that bilateral peripheral pneumonia is slightly worse than last exam. Patient's oxygen saturation did improve to 97-98% on 2 L. She will be admitted to the hospital for oxygen therapy and further monitoring. Patient is agreeable with this plan. - Lab Data Result diagrams: 06/06/20 02:06 06/06/20 02:06 Lab Results 06/06/20 06/06/20 06/06/20 Range/Units 02:06 02:06 02:06 WBC 5.5 (3.8-10.6) k/uL RBC 3.43 L (3.80-5.40) m/uL Hgb 8.1 L (11.4-16.0) gm/dL Hct 26.1 L (34.0-46.0) % MCV 76.3 L (80.0-100.0) fL MCH 23.7 L (25.0-35.0) pg MCHC 31.1 (31.0-37.0) g/dL RDW 13.6 (11.5-15.5) % Plt Count 314 (150-450) k/uL Neutrophils % 73 % Lymphocytes % 22 % Monocytes % 3 % Eosinophils % 0 % Basophils % 0 % Neutrophils # 4.1 (1.3-7.7) k/uL Lymphocytes # 1.2 (1.0-4.8) k/uL Monocytes # 0.2 (0-1.0) k/uL Eosinophils # 0.0 (0-0.7) k/uL Basophils # 0.0 (0-0.2) k/uL Hypochromasia Marked Poikilocytosis Slight PT 9.7 (9.0-12.0) sec INR 0.9 (<1.2) APTT 24.3 (22.0-30.0) sec D-Dimer 0.19 (<0.60) mg/L FEU VBG pH (7.31-7.41) VBG pCO2 (37-51) mmHg VBG HCO3 (24-28) mmol/L Sodium 135 L (137-145) mmol/L Potassium 3.7 (3.5-5.1) mmol/L Chloride 105 (98-107) mmol/L Carbon Dioxide 24 (22-30) mmol/L Anion Gap 6 mmol/L BUN 6 L (7-17) mg/dL Creatinine 0.64 (0.52-1.04) mg/dL Est GFR (CKD-EPI)AfAm >90 (>60 ml/min/1.73 sqM) Est GFR (CKD-EPI)NonAf >90 (>60 ml/min/1.73 sqM) Glucose 110 H (74-99) mg/dL Plasma Lactic Acid Jerel (0.7-2.0) mmol/L Calcium 7.9 L (8.4-10.2) mg/dL Total Bilirubin 0.4 (0.2-1.3) mg/dL AST 49 H (14-36) U/L ALT 48 H (4-34) U/L Alkaline Phosphatase 49 (38-126) U/L Total Protein 6.0 L (6.3-8.2) g/dL Albumin 3.2 L (3.5-5.0) g/dL 06/06/20 06/06/20 Range/Units 02:06 02:30 WBC (3.8-10.6) k/uL RBC (3.80-5.40) m/uL Hgb (11.4-16.0) gm/dL Hct (34.0-46.0) % MCV (80.0-100.0) fL MCH (25.0-35.0) pg MCHC (31.0-37.0) g/dL RDW (11.5-15.5) % Plt Count (150-450) k/uL Neutrophils % % Lymphocytes % % Monocytes % % Eosinophils % % Basophils % % Neutrophils # (1.3-7.7) k/uL Lymphocytes # (1.0-4.8) k/uL Monocytes # (0-1.0) k/uL Eosinophils # (0-0.7) k/uL Basophils # (0-0.2) k/uL Hypochromasia Poikilocytosis PT (9.0-12.0) sec INR (<1.2) APTT (22.0-30.0) sec D-Dimer (<0.60) mg/L FEU VBG pH 7.47 H (7.31-7.41) VBG pCO2 33 L (37-51) mmHg VBG HCO3 23 L (24-28) mmol/L Sodium (137-145) mmol/L Potassium (3.5-5.1) mmol/L Chloride (98-107) mmol/L Carbon Dioxide (22-30) mmol/L Anion Gap mmol/L BUN (7-17) mg/dL Creatinine (0.52-1.04) mg/dL Est GFR (CKD-EPI)AfAm (>60 ml/min/1.73 sqM) Est GFR (CKD-EPI)NonAf (>60 ml/min/1.73 sqM) Glucose (74-99) mg/dL Plasma Lactic Acid Jerel 1.3 (0.7-2.0) mmol/L Calcium (8.4-10.2) mg/dL Total Bilirubin (0.2-1.3) mg/dL AST (14-36) U/L ALT (4-34) U/L Alkaline Phosphatase (38-126) U/L Total Protein (6.3-8.2) g/dL Albumin (3.5-5.0) g/dL - EKG Data -: EKG Interpreted by Mi - Radiology Data Radiology results: report reviewed, image reviewed One view x-ray of the chest is obtained. Report was reviewed in its entirety. Impression by Dr. Pedro shows bilateral peripheral pneumonia slightly worsened last exam. Disposition Clinical Impression: Pneumonia due to COVID-19 virus, Hypoxia Disposition: ADMITTED IP TO THIS [facility] Condition: Serious Referrals: Ayden Rankin MD [Primary Care Provider] - 1-2 days Decision to Admit Reason: Admit from EC Decision Date: 06/06/20 Decision Time: 03:11
[2020-06-06 02:46] LABS: African American GFR (CKD) >90 (>60 ml/min/1.73 sqM); Albumin 3.2 g/dL (3.5-5.0); Anion Gap 6 mmol/L; Calcium 7.9 mg/dL (8.4-10.2); Carbon Dioxide 24 mmol/L (22-30); Chloride 105 mmol/L (98-107); Glucose 110 mg/dL (74-99); Non-African American GFR(CKD) >90 (>60 ml/min/1.73 sqM); Sodium 135 mmol/L (137-145); Total Bilirubin 0.4 mg/dL (0.2-1.3)
[2020-06-06 02:49] LABS: D-Dimer 0.19 mg/L FEU (<0.60); INR 0.9 (<1.2); Partial Thromboplastin Time 24.3 sec (22.0-30.0); Prothrombin Time 9.7 sec (9.0-12.0)
[2020-06-06 02:56] LABS: ALT 48 U/L (4-34); AST 49 U/L (14-36); Alkaline Phosphatase 49 U/L (38-126); Blood Urea Nitrogen 6 mg/dL (7-17); Potassium 3.7 mmol/L (3.5-5.1)
[2020-06-06] MEDS ORDERED: NALOXONE 0.4 MG/ML 1 ML VIAL IV PRN (03:02)
[2020-06-06] MEDS ORDERED: IBUPROFEN 400 MG TAB PO PRN (03:02)
[2020-06-06 03:07] LABS: Appearance,Urine Clear (Clear); Bilirubin,Urine Negative (Negative); Blood,Urine Negative (Negative); Color,Urine Yellow; Glucose,Urine (UA) Negative (Negative); Ketones,Urine Negative (Negative); Leukocyte Esterase,Urine Negative (Negative); Nitrite,Urine Negative (Negative); Protein,Urine Trace (Negative); Urobilinogen,Urine <2.0 mg/dL (<2.0)
--- NOTE | 2020-06-06 04:43 | P.HPIM ---
History of Present Illness H&P Date: 06/06/20 Patient is a 40-year-old female with recently diagnosed Covid who presented to the ED due to hypoxia and hallucinations. The patient was recently seen at the emergency room and was discharged home with Covid pneumonitis with a 10 day course of Decadron. Patient notes that her symptoms initially started on 05/28 when she developed a fever accompanied by hallucinations. The patient was subsequently diagnosed on 06/02. Patient reports continued hallucinations and feeling today as though she had to continue repeating the same sentence in her head over and over again with an inability to stop. She also notes feeling as though her legs were not her own at multiple times during the course of this illness and had these thoughts that someone was going to use her legs as a chandelier. Patient became concerned and felt somewhat short of breath at which time she checked her SpO2 which was 83%. She subsequently decided to come to the emergency room. Patient also reports ongoing cough minimally productive of green-yellow phlegm along with ongoing fevers. She denied nausea, vomiting, diarrhea. Reports she had diarrhea a few days ago but has since resolved. Denied headaches, dizziness, dysuria, or visual disturbances. Patient was febrile in the emergency room at 101.7 with a pulse of 109 and saturating at 93% on room air. Laboratory evaluation revealed hemoglobin 8.1, W c-collar 5.5, platelets 314, d-dimer 0.19, sodium 135, potassium 3.7, chloride 105, CO2 24, BUN 6, creatinine 0.64, glucose 110, lactic acid 1.3, AST 49, ALT 48, troponin less than 0.012. Chest x-ray revealed bilateral peripheral pneumonia worse than prior. EKG showing normal sinus rhythm at 93 bpm with an incomplete right bundle clarke block as reviewed by me. Review of Systems Pertinent positives and negatives as discussed in HPI, a complete review of systems was performed and all other systems are negative. Past Medical History Past Medical History: GERD/Reflux, Thyroid Disorder Additional Past Medical History / Comment(s): Hashimotos, endometriosos. covid 19, History of Any Multi-Drug Resistant Organisms: None Reported Past Surgical History: Cholecystectomy Additional Past Surgical History / Comment(s): colonoscopy Past Anesthesia/Blood Transfusion Reactions: Previous Problems w/ Anesthesia Additional Past Anesthesia/Blood Transfusion Reaction / Comment(s): woke up during last colonoscopy. Past Psychological History: No Psychological Hx Reported Smoking Status: Former smoker Past Alcohol Use History: None Reported Additional Past Alcohol Use History / Comment(s): STATES QUIT APPROX 2011, SMOKED 1PPD SINCE AGE 14 Past Drug Use History: None Reported - Past Family History Mother Family Medical History: No Reported History Medications and Allergies Home Medications Medication Instructions Recorded Confirmed Type Cholestyramine (with Sugar) 4 gm PO TID PRN #30 packet 06/04/20 Rx [Questran] dexAMETHasone [Hexadrol] 4 mg PO DAILY #10 tab 06/04/20 Rx Allergies Allergy/AdvReac Type Severity Reaction Status Date / Time oxycodone Allergy Rash/Hives Verified 06/06/20 01:30 Physical Exam Vitals: Vital Signs Temp Pulse Pulse Resp BP BP Pulse Ox 06/06/20 03:44 98.8 F 91 18 97/57 97 06/06/20 03:29 99.1 F 99 19 99/52 100 06/06/20 03:00 94 20 102/62 100 06/06/20 01:25 101.7 F H 109 H 22 100/62 93 L Intake and Output 06/05/20 06/05/20 06/06/20 14:59 22:59 06:59 Other: Weight 108 kg General: non toxic, no distress, appears at stated age, morbidly obese Derm: no unusual rashes/lesions no unusual ecchymoses, warm, dry Head: atraumatic, normocephalic, symmetric Eyes: EOMI, no lid lag, anicteric sclera, pupils equal round reactive to light ENT: Nose and ears atraumatic, no thrush, no pharyngeal erythema Neck: No thyromegaly, no cervical lymphadenopathy, trachea midline, supple Mouth: no lip lesion, mucus membranes moist Cardiovascular: S1S2 reg, no murmur, positive posterior tibial pulse bilateral, no edema, capillary refill less than 2 seconds Lungs: Scattered rhonchi, no rales or wheezing appreciated, no accessory muscle use Abdominal: soft, nontender to palpation, no guarding, no appreciable organomegaly, normal bowel sounds Ext: no gross muscle atrophy, muscle strength 5 out of 5 in all 4 extremities grossly, no contractures, Neuro: CN II-XI grossly intact, light touch intact all 4 extremities, finger to nose within normal limits, Psych: Alert, oriented, appropriate affect Results CBC & Chem 7: 06/06/20 02:06 06/06/20 02:06 Labs: Abnormal Lab Results - Last 24 Hours (Table) 06/06/20 06/06/20 06/06/20 Range/Units 02:06 02:06 02:06 RBC 3.43 L (3.80-5.40) m/uL Hgb 8.1 L (11.4-16.0) gm/dL Hct 26.1 L (34.0-46.0) % MCV 76.3 L (80.0-100.0) fL MCH 23.7 L (25.0-35.0) pg VBG pH (7.31-7.41) VBG pCO2 (37-51) mmHg VBG HCO3 (24-28) mmol/L Sodium 135 L (137-145) mmol/L BUN 6 L (7-17) mg/dL Glucose 110 H (74-99) mg/dL Calcium 7.9 L (8.4-10.2) mg/dL AST 49 H (14-36) U/L ALT 48 H (4-34) U/L Total Protein 6.0 L (6.3-8.2) g/dL Albumin 3.2 L (3.5-5.0) g/dL Urine Protein Trace H (Negative) 06/06/20 Range/Units 02:30 RBC (3.80-5.40) m/uL Hgb (11.4-16.0) gm/dL Hct (34.0-46.0) % MCV (80.0-100.0) fL MCH (25.0-35.0) pg VBG pH 7.47 H (7.31-7.41) VBG pCO2 33 L (37-51) mmHg VBG HCO3 23 L (24-28) mmol/L Sodium (137-145) mmol/L BUN (7-17) mg/dL Glucose (74-99) mg/dL Calcium (8.4-10.2) mg/dL AST (14-36) U/L ALT (4-34) U/L Total Protein (6.3-8.2) g/dL Albumin (3.5-5.0) g/dL Urine Protein (Negative) Thrombosis Risk Factor Assmnt - Choose All That Apply Any of the Below Risk Factors Present?: Yes Each Factor Represents 1 point: Age 41-60 years, Obesity (BMI >25) Thrombosis Risk Factor Assessment Total Risk Factor Score: 2 Thrombosis Risk Factor Assessment Level: Low Risk Assessment and Plan Plan: Covid-19 pneumonia -C/w Decadrone -Supplemental oxygen -IV fluids -Isolation precautions Hallucinations -Likely secondary to fever as patient reports she had them prior to starting Decadron Abnormal LFTs -Likely secondary to Covid infection -Monitor for now Microcytic anemia -Likely due to ongoing infection -Monitor CBC DVT prophylaxis -Lovenox The patient is admitted with an anticipated less than 2 midnight stay for evaluation of Covid pneumonia CODE STATUS: Full Code Discussed with: Patient, Anticipated discharge date: 1-[address]: Home A total of 35 minutes was spent on the care of this complex patient more than 50% of the time was spent in counseling and care coordination.
[2020-06-06 07:35] LABS: Magnesium 2.1 mg/dL (1.6-2.3)
[2020-06-06] MEDS: ENOXAPARIN 40 MG/0.4 ML SYRINGE SQ SCH (08:47)
[2020-06-06] MEDS: dexAMETHasone 2 MG TAB PO SCH (08:47)
[2020-06-06] MEDS ORDERED: dexAMETHasone 4 MG TAB PO SCH (09:00)
[2020-06-06] MEDS: ACETAMINOPHEN TAB 325 MG TAB PO PRN ×3 (11:35→22:30)
--- NOTE | 2020-06-06 12:03 | P.PN ---
Progress Note - Text Progress Note Date: 06/06/20 Patient admitted to the hospital with Covid 19 pneumonia and acute hypoxic respiratory failure. She is having persistent cough this morning. She was started on Decadron 4 mg daily. I would increase Decadron dose to 6 mg daily as directed by treatment guidelines. I would order Tessalon Perles as needed for cough. I would consult Dr. Fofana to consider Remdesivir course as her symptoms onset is less than 10 days. Continue supportive care otherwise. Repeat lab work in the morning. DVT prophylaxis with Lovenox.
[2020-06-06] MEDS: BENZONATATE 100 MG CAP PO PRN ×2 (12:17→20:53)
[2020-06-06] MEDS ORDERED: REMDESIVIR (EUA) 200 MG in SODIUM CHLORIDE 0.9% 250 ML IVPB ONE (14:00)
--- NOTE | 2020-06-06 14:02 | P.CNPUL ---
History of Present Illness Consult date: 06/06/20 Requesting physician: Cristy Richards Reason for consult: cough, abnormal CXR/CT Chief complaint: Cough, congestion, altered mental status, COVID 19 History of present illness: 40-year-old white female patient of Dr. Ayden Rankin, who was recently tested on outpatient basis for COVID 19 7-8 days ago, and was found to be positive, presented to the emergency department on 06/06/2020 for evaluation of altered mental status, and low oxygen saturation. She was recently in the hospital discharged home on 06/04/2020, at that time patient was positive for COVID 19, she was having symptoms of fever, dry cough, headaches, loss of sense of smell and taste, decreased appetite, loose stools and fatigue. Patient was treated with Rocephin and Zithromax, oral Decadron, and she was discharged home on 10 day course of oral Decadron, patient returned for reevaluation on 06/06/2020, she was febrile on presentation with a temp of 101.7F, 93% on room air, tachycardic sinus mechanism with a rate of 103 bpm. Lab work showed a white blood cell, 5.5, hemoglobin is 8.1, d-dimer was 0.19, sodium is 135, the rest of electrolytes were within normal limits, BUN is 6 creatinine 0.64, troponin is less than 0.012, proBNP was within normal limits at 210, urinalysis showed trace protein but negative for any sign of infection. Patient was started on oral Decadron, Mucinex, prophylactic doses of Lovenox, her fever was treated with Tylenol and Motrin, she is given gentle IV hydration and we will start the patient on Remdesivir. Review of Systems All systems: negative Constitutional: Denies chills, Denies fever Eyes: denies blurred vision, denies pain Ears, nose, mouth and throat: Denies headache, Denies sore throat Cardiovascular: Denies chest pain, Denies shortness of breath Respiratory: Reports congestion, Reports cough, Reports dyspnea Gastrointestinal: Denies abdominal pain, Denies diarrhea, Denies nausea, Denies vomiting Genitourinary: Denies dysuria, Denies hematuria Musculoskeletal: Denies myalgias Integumentary: Denies pruritus, Denies rash Neurological: Denies numbness, Denies weakness Psychiatric: Denies anxiety, Denies depression Endocrine: Denies fatigue, Denies weight change Past Medical History Past Medical History: GERD/Reflux, Thyroid Disorder Additional Past Medical History / Comment(s): Hashimotos, endometriosos. covid 19, History of Any Multi-Drug Resistant Organisms: None Reported Past Surgical History: Cholecystectomy Additional Past Surgical History / Comment(s): colonoscopy Past Anesthesia/Blood Transfusion Reactions: Previous Problems w/ Anesthesia Additional Past Anesthesia/Blood Transfusion Reaction / Comment(s): woke up du ring last colonoscopy. Past Psychological History: No Psychological Hx Reported Smoking Status: Former smoker Past Alcohol Use History: None Reported Additional Past Alcohol Use History / Comment(s): STATES QUIT APPROX 2011, SMOKED 1PPD SINCE AGE 14 Past Drug Use History: None Reported - Past Family History Mother Family Medical History: No Reported History Medications and Allergies Home Medications Medication Instructions Recorded Confirmed Type Cholestyramine (with Sugar) 4 gm PO TID PRN #30 packet 06/04/20 06/06/20 Rx [Questran] dexAMETHasone [Hexadrol] 4 mg PO DAILY #10 tab 06/04/20 06/06/20 Rx Allergies Allergy/AdvReac Type Severity Reaction Status Date / Time oxycodone Allergy Rash/Hives Verified 06/06/20 06:19 Physical Exam Vitals: Vital Signs Temp Pulse Pulse Resp BP BP Pulse Ox 06/06/20 12:00 98.5 F 95 20 128/61 98 06/06/20 08:00 98.5 F 86 20 106/55 92 L 06/06/20 03:44 98.8 F 91 18 97/57 97 06/06/20 03:29 99.1 F 99 19 99/52 100 06/06/20 03:00 94 20 102/62 100 06/06/20 01:25 101.7 F H 109 H 22 100/62 93 L Intake and Output 06/05/20 06/06/20 06/06/20 22:59 06:59 14:59 Intake Total 465 Balance 465 Intake: Oral 465 Other: # Voids 1 Weight 108 kg GENERAL EXAM: Alert, very pleasant, 40-year-old obese white female on 2 L of oxygen is a pulse ox of 98% loose congested cough HEAD: Normocephalic/atraumatic. EYES: Normal reaction of pupils, equal size. Conjunctiva pink, sclera white. NOSE: Clear with pink turbinates. THROAT: No erythema or exudates. NECK: No masses, no JVD, no thyroid enlargement, no adenopathy. CHEST: No chest wall deformity. Symmetrical expansion. LUNGS: Equal air entry with no crackles, wheeze, rhonchi or dullness. CVS: Regular rate and rhythm, normal S1 and S2, no gallops, no murmurs, no rubs ABDOMEN: Soft, nontender. No hepatosplenomegaly, normal bowel sounds, no guarding or rigidity. EXTREMITIES: No clubbing, no edema, no cyanosis, 2+ pulses and upper and lower extremities. MUSCULOSKELETAL: Muscle strength and tone normal. SPINE: No scoliosis or deformity SKIN: No rashes CENTRAL NERVOUS SYSTEM: Alert and oriented -3. No focal deficits, tone is normal in all 4 extremities. PSYCHIATRIC: Alert and oriented -3. Appropriate affect. Intact judgment and insight. Results - Laboratory Findings CBC and BMP: 06/06/20 02:06 06/06/20 02:06 PT/INR, D-dimer PT 9.7 sec (9.0-12.0) 06/06/20 02:06 INR 0.9 (<1.2) 06/06/20 02:06 D-Dimer 0.19 mg/L FEU (<0.60) 06/06/20 02:06 Abnormal lab findings: Abnormal Labs 06/06/20 06/06/20 06/06/20 02:06 02:06 02:06 RBC 3.43 L Hgb 8.1 L Hct 26.1 L MCV 76.3 L MCH 23.7 L VBG pH VBG pCO2 VBG HCO3 Sodium 135 L BUN 6 L Glucose 110 H Calcium 7.9 L AST 49 H ALT 48 H Total Protein 6.0 L Albumin 3.2 L Urine Protein Trace H 06/06/20 02:30 RBC Hgb Hct MCV MCH VBG pH 7.47 H VBG pCO2 33 L VBG HCO3 23 L Sodium BUN Glucose Calcium AST ALT Total Protein Albumin Urine Protein - Diagnostic Findings Chest x-ray: report reviewed, image reviewed Assessment and Plan Plan: Assessment: #1. Acute hypoxic respiratory failure related to COVID 19 pneumonitis #2. Altered mental status, hallucinations likely related to hypoxemia and fever, improved #3. Anemia, microcytic #4. Former smoker #5. History of endometriosis #6. History of Leigh's thyroiditis #7. Recent admission from 06/02/2020 through 06/04/2020 for COVID 19, was treated with Decadron, azithromycin and Rocephin Plan: Continue current medical treatment, oral Decadron, prophylactic dose Lovenox, Tessalon, antipyretics, Mucinex, we'll add Remdesivir. We'll continue following inflammatory markers, mental status has improved, patient remains on supplemental oxygen, will continue monitoring patient's dyspnea, and oxygen demands, we'll continue to follow I performed a history & physical examination of the patient and discussed their management with my nurse practitioner, Sydney Arias. I reviewed the nurse practitioner's note and agree with the documented findings and plan of care. Lung sounds are positive for diminished breath sounds, and diffuse wheezes The findings and the impression was discussed with the patient. I attest to the documentation by the nurse practitioner. Time with Patient: Greater than 30
[2020-06-06] MEDS ORDERED: CALCIUM CARBONATE 500 MG CHEWABLE PO PRN (17:00)
[2020-06-06] MEDS: guaiFENesin 600 MG TABLET.ER PO SCH (20:53)
[2020-06-06] MEDS: MELATONIN 5 MG TABLET PO PRN (22:26)
[2020-06-07] MEDS: SODIUM CHLORIDE 0.9% 1,000 ML IV SCH (06:39)
[2020-06-07] MEDS: PANTOPRAZOLE 40 MG TABLET PO SCH (06:39)
[2020-06-07] MEDS: ENOXAPARIN 40 MG/0.4 ML SYRINGE SQ SCH (08:31)
[2020-06-07] MEDS: guaiFENesin 600 MG TABLET.ER PO SCH ×2 (08:31→20:56)
[2020-06-07] MEDS: dexAMETHasone 2 MG TAB PO SCH (08:31)
[2020-06-07] MEDS: BENZONATATE 100 MG CAP PO PRN (08:32)
[2020-06-07] MEDS: ACETAMINOPHEN TAB 325 MG TAB PO PRN ×3 (08:32→23:30)
--- NOTE | 2020-06-07 12:44 | P.PN ---
Subjective Progress Note Date: 06/07/20 Principal diagnosis: COVID 19 pneumonia patient stated that this morning she had a coughing spell. She states that currently she is feeling okay. Patient is still requiring oxygen. 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 Psych - Calm and cooperative - Labs CBC & Chem 7: 06/06/20 02:06 06/06/20 02:06 Labs: Microbiology - Last 24 Hours (Table) 06/06/20 02:06 Blood Culture - Preliminary Blood No Growth after 24 hours Assessment and Plan Assessment: Covid-19 pneumonia -C/w Decadrone -Patient started on Remdesivir day 2/ -Supplemental oxygen -IV fluids -Isolation precautions Hallucinations -Likely secondary to fever as patient reports she had them prior to starting Decadron -Resolved Abnormal LFTs -Mild elevation -Likely secondary to Covid infection -Monitor for now Microcytic anemia -Likely due to ongoing infection -Monitor CBC DVT prophylaxis -Lovenox
--- NOTE | 2020-06-07 13:25 | P.PN ---
Subjective Progress Note Date: 06/07/20 Principal diagnosis: cough, congestion, altered mental status, COVID 19 40-year-old white female patient of Dr. Ayden Rankin, who was recently tested on outpatient basis for COVID 19 7-8 days ago, and was found to be positive, presented to the emergency department on 06/06/2020 for evaluation of altered mental status, and low oxygen saturation. She was recently in the hospital discharged home on 06/04/2020, at that time patient was positive for COVID 19, she was having symptoms of fever, dry cough, headaches, loss of sense of smell and taste, decreased appetite, loose stools and fatigue. Patient was treated with Rocephin and Zithromax, oral Decadron, and she was discharged home on 10 day course of oral Decadron, patient returned for reevaluation on 06/06/2020, she was febrile on presentation with a temp of 101.7F, 93% on room air, tachycardic sinus mechanism with a rate of 103 bpm. Lab work showed a white blood cell, 5.5, hemoglobin is 8.1, d-dimer was 0.19, sodium is 135, the rest of electrolytes were within normal limits, BUN is 6 creatinine 0.64, troponin is less than 0.012, proBNP was within normal limits at 210, urinalysis showed trace protein but negative for any sign of infection. Patient was started on oral Decadron, Mucinex, prophylactic doses of Lovenox, her fever was treated with Tylenol and Motrin, she is given gentle IV hydration and we will start the patient on Remdesivir. On 06/07/2020 patient seen in follow-up on selective care unit, she is resting comfortably in bed, she had one episode of low-grade fever early this morning, currently afebrile, she still continues to have some coughing spells, and her mentation seems to be appropriate, breathing is nonlabored, no hemoptysis, room air pulse ox was 91%.we started the patient on Remdesivir, she continues on oral Decadron, antipyretics, Tessalon Perles, and gentle IV hydration Objective - Vital Signs Vital signs: Vital Signs Temp 98 F 06/07/20 08:00 Pulse 82 06/07/20 08:00 Resp 20 06/07/20 11:07 BP 110/64 06/07/20 08:00 Pulse Ox 91 L 06/07/20 08:00 Intake & Output 06/06/20 06/07/20 06/07/20 18:59 06:59 18:59 Intake Total 690 240 Output Total 200 180 Balance 490 -180 240 Weight 107.6 kg Intake: Oral 690 240 Output: Urine 200 180 Other: Voiding Method Toilet # Voids 3 - Exam GENERAL EXAM: Alert, very pleasant, 40-year-old obese white female on 2 L of oxygen is a pulse ox of 94% loose congested cough HEAD: Normocephalic/atraumatic. EYES: Normal reaction of pupils, equal size. Conjunctiva pink, sclera white. NOSE: Clear with pink turbinates. THROAT: No erythema or exudates. NECK: No masses, no JVD, no thyroid enlargement, no adenopathy. CHEST: No chest wall deformity. Symmetrical expansion. LUNGS: Equal air entry with no crackles, wheeze, rhonchi or dullness. CVS: Regular rate and rhythm, normal S1 and S2, no gallops, no murmurs, no rubs ABDOMEN: Soft, nontender. No hepatosplenomegaly, normal bowel sounds, no guarding or rigidity. EXTREMITIES: No clubbing, no edema, no cyanosis, 2+ pulses and upper and lower extremities. MUSCULOSKELETAL: Muscle strength and tone normal. SPINE: No scoliosis or deformity SKIN: No rashes CENTRAL NERVOUS SYSTEM: Alert and oriented -3. No focal deficits, tone is normal in all 4 extremities. PSYCHIATRIC: Alert and oriented -3. Appropriate affect. Intact judgment and insight. - Labs CBC & Chem 7: 06/06/20 02:06 06/06/20 02:06 Labs: Microbiology - Last 24 Hours (Table) 06/06/20 02:06 Blood Culture - Preliminary Blood No Growth after 24 hours Assessment and Plan Plan: Assessment: #1. Acute hypoxic respiratory failure related to COVID 19 pneumonitis #2. Altered mental status, hallucinations likely related to hypoxemia and fever, improved #3. Anemia, microcytic #4. Former smoker #5. History of endometriosis #6. History of Leigh's thyroiditis #7. Recent admission from 06/02/2020 through 06/04/2020 for COVID 19, was treated with Decadron, azithromycin and Rocephin Plan: continue current medical treatment, today is day second of Remdesivir, continue with the anticoagulation, oral Decadron. Continue gentle IV hydration, antipyretics, fever pattern has improved, no worsening dyspnea, still gets coughing spells, she continues on Tessalon Perles. I performed a history & physical examination of the patient and discussed their management with my nurse practitioner, Sydney Arias. I reviewed the nurse practitioner's note and agree with the documented findings and plan of care. Lung sounds are positive for diminished breath sounds, and diffuse wheezes The findings and the impression was discussed with the patient. I attest to the documentation by the nurse practitioner. Time with Patient: Less than 30
[2020-06-07] MEDS: guaiFENesin-DM 100-10MG/5ML 10 ML CUP PO PRN ×2 (14:01→23:30)
[2020-06-07] MEDS: REMDESIVIR (EUA) 100 MG in SODIUM CHLORIDE 0.9% 250 ML IVPB SCH (14:01)
[2020-06-07] MEDS: MELATONIN 5 MG TABLET PO PRN (20:57)
[2020-06-08] MEDS: PANTOPRAZOLE 40 MG TABLET PO SCH (06:30)
[2020-06-08] MEDS: dexAMETHasone 2 MG TAB PO SCH (08:44)
[2020-06-08] MEDS: guaiFENesin 600 MG TABLET.ER PO SCH ×2 (08:45→20:48)
[2020-06-08] MEDS: ENOXAPARIN 40 MG/0.4 ML SYRINGE SQ SCH (08:46)
[2020-06-08] MEDS: SODIUM CHLORIDE 0.9% 1,000 ML IV SCH (08:46)
--- NOTE | 2020-06-08 11:25 | P.PN ---
Subjective Progress Note Date: 06/08/20 Principal diagnosis: COVID 19 pneumonia Patient was having a coughing spell and entered the room. She states that she feels the same as yesterday. She is still on 2 L nasal cannula. She has been afebrile in the past 48 hours. Objective - Vital Signs Vital signs: Vital Signs Temp 98.4 F 06/08/20 08:30 Pulse 72 06/08/20 08:30 Resp 16 06/08/20 08:30 BP 122/73 06/08/20 08:30 Pulse Ox 94 L 06/08/20 08:30 Intake & Output 06/07/20 06/08/20 06/08/20 18:59 06:59 18:59 Intake Total 540 150 420 Balance 540 150 420 Intake: Intake, IV Titration 150 Amount Sodium Chloride 0.9% 1, 150 000 ml @ 50 mls/hr IV . 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 Psych - Calm and cooperative - Labs CBC & Chem 7: 06/06/20 02:06 06/06/20 02:06 Labs: Microbiology - Last 24 Hours (Table) 06/06/20 02:06 Blood Culture - Preliminary Blood No Growth after 48 hours Assessment and Plan Assessment: Covid-19 pneumonia -C/w Decadrone -Patient started on Remdesivir day 3/ -Supplemental oxygen -IV fluids -Isolation precautions Hallucinations -Likely secondary to fever as patient reports she had them prior to starting Decadron -Resolved Abnormal LFTs -Mild elevation -Likely secondary to Covid infection -Monitor for now Microcytic anemia -Likely due to ongoing infection -Monitor CBC DVT prophylaxis -Lovenox
[2020-06-08 11:53] LABS: Basophils % (A) 0 %; Eosinophils % (A) 0 %; HCT 26.2 % (34.0-46.0); Hypochromasia Marked; Lymphocytes # (A) 1.5 k/uL (1.0-4.8); Lymphocytes % (A) 36 %; MCH 23.9 pg (25.0-35.0); MCHC 30.7 g/dL (31.0-37.0); Mean Platelet Volume 7.9; Monocytes # (A) 0.3 k/uL (0-1.0); Monocytes % (A) 8 %; Neutrophils # (A) 2.1 k/uL (1.3-7.7); Neutrophils % (A) 52 %; Platelet Count 426 k/uL (150-450); Poikilocytosis Slight; RBC 3.36 m/uL (3.80-5.40); RDW 13.5 % (11.5-15.5)
--- NOTE | 2020-06-08 12:41 | P.PN ---
Subjective Progress Note Date: 06/08/20 Principal diagnosis: Altered mental status secondary to CoVID 19 40-year-old white female patient of Dr. Ayden Rankin, who was recently tested on outpatient basis for COVID 19 7-8 days ago, and was found to be positive, presented to the emergency department on 06/06/2020 for evaluation of altered mental status, and low oxygen saturation. She was recently in the hospital discharged home on 06/04/2020, at that time patient was positive for COVID 19, she was having symptoms of fever, dry cough, headaches, loss of sense of smell and taste, decreased appetite, loose stools and fatigue. Patient was treated with Rocephin and Zithromax, oral Decadron, and she was discharged home on 10 day course of oral Decadron, patient returned for reevaluation on 06/06/2020, she was febrile on presentation with a temp of 101.7F, 93% on room air, tachycardic sinus mechanism with a rate of 103 bpm. Lab work showed a white blood cell, 5.5, hemoglobin is 8.1, d-dimer was 0.19, sodium is 135, the rest of electrolytes were within normal limits, BUN is 6 creatinine 0.64, troponin is less than 0.012, proBNP was within normal limits at 210, urinalysis showed trace protein but negative for any sign of infection. Patient was started on oral Decadron, Mucinex, prophylactic doses of Lovenox, her fever was treated with Tylenol and Motrin, she is given gentle IV hydration and we will start the patient on Remdesivir. On 06/07/2020 patient seen in follow-up on selective care unit, she is resting comfortably in bed, she had one episode of low-grade fever early this morning, currently afebrile, she still continues to have some coughing spells, and her mentation seems to be appropriate, breathing is nonlabored, no hemoptysis, room air pulse ox was 91%.we started the patient on Remdesivir, she continues on oral Decadron, antipyretics, Tessalon Perles, and gentle IV hydration The patient is seen today 06/08/2020 in follow-up on the selective care unit. She is currently awake and alert in no acute distress. Resting fairly comfortably in bed. Maintaining O2 saturations in the 90s on 2 L/m per nasal cannula. She's been afebrile. White count 4.0. Hemoglobin 8.0. She is curr ently on Remdesivir, lovenox, protonix, and dexamethasone. Objective - Vital Signs Vital signs: Vital Signs Temp 98.4 F 06/08/20 08:30 Pulse 72 06/08/20 08:30 Resp 16 06/08/20 08:30 BP 122/73 06/08/20 08:30 Pulse Ox 94 L 06/08/20 08:30 Intake & Output 06/07/20 06/08/20 06/08/20 18:59 06:59 18:59 Intake Total 540 150 420 Balance 540 150 420 Intake: Intake, IV Titration 150 Amount Sodium Chloride 0.9% 1, 150 000 ml @ 50 mls/hr IV . Q20H [facility] Rx#:[id number] Oral 540 420 Other: Voiding Method Toilet Toilet # Voids 1 - Exam GENERAL EXAM: Alert, pleasant, 40-year-old obese white female on 2 L of oxygen is a pulse ox of 94% HEAD: Normocephalic/atraumatic. EYES: Normal reaction of pupils, equal size. Conjunctiva pink, sclera white. NOSE: Clear with pink turbinates. THROAT: No erythema or exudates. NECK: No masses, no JVD, no thyroid enlargement, no adenopathy. CHEST: No chest wall deformity. Symmetrical expansion. LUNGS: Equal air entry with few scattered rhonchi CVS: Regular rate and rhythm, normal S1 and S2, no gallops, no murmurs, no rubs ABDOMEN: Soft, nontender. No hepatosplenomegaly, normal bowel sounds, no guarding or rigidity. EXTREMITIES: No clubbing, no edema, no cyanosis, 2+ pulses and upper and lower extremities. MUSCULOSKELETAL: Muscle strength and tone normal. SPINE: No scoliosis or deformity SKIN: No rashes CENTRAL NERVOUS SYSTEM: Alert and oriented -3. No focal deficits, tone is normal in all 4 extremities. PSYCHIATRIC: Alert and oriented -3. Appropriate affect. Intact judgment and insight. - Labs CBC & Chem 7: 06/08/20 06:58 06/06/20 02:06 Labs: Abnormal Lab Results - Last 24 Hours (Table) 06/08/20 Range/Units 06:58 RBC 3.36 L (3.80-5.40) m/uL Hgb 8.0 L (11.4-16.0) gm/dL Hct 26.2 L (34.0-46.0) % MCV 78.0 L (80.0-100.0) fL MCH 23.9 L (25.0-35.0) pg MCHC 30.7 L (31.0-37.0) g/dL Microbiology - Last 24 Hours (Table) 06/06/20 02:06 Blood Culture - Preliminary Blood No Growth after 48 hours Assessment and Plan Assessment: 1 Acute hypoxic respiratory failure related to COVID 19 pneumonitis 2 Altered mental status, hallucinations likely related to hypoxemia and fever, improved 3 Anemia, microcytic 4 Former smoker 5 History of endometriosis 6 History of Leigh's thyroiditis 7 Recent admission from 06/02/2020 through 06/04/2020 for COVID 19, was treated with Decadron, azithromycin and Rocephin Plan: The patient was seen and evaluated by Dr. Joaquin Continue the current treatment plan Repeat chest x-ray in a.m. Titrate down the FiO2 as tolerated We will continue to follow I, the cosigning physician, performed a history & physical examination of the patient. Lungs sounds with few scattered rhonchi. Maintaining good O2 sa turations in the 90s on 2 L/m per nasal cannula. I discussed the assessment and plan of care with my nurse practitioner, Renee Oh. I attest to the above note as dictated by her.
[2020-06-08 13:42] LABS: African American GFR (CKD) >90 (>60 ml/min/1.73 sqM); Anion Gap 6 mmol/L; Blood Urea Nitrogen 10 mg/dL (7-17); C Reactive Protein 50.7 mg/L (<10.0); Calcium 8.3 mg/dL (8.4-10.2); Carbon Dioxide 27 mmol/L (22-30); Chloride 105 mmol/L (98-107); Glucose 146 mg/dL (74-99); LDH 548 U/L (313-618); Non-African American GFR(CKD) >90 (>60 ml/min/1.73 sqM); Potassium 4.5 mmol/L (3.5-5.1); Sodium 138 mmol/L (137-145)
[2020-06-08] MEDS: REMDESIVIR (EUA) 100 MG in SODIUM CHLORIDE 0.9% 250 ML IVPB SCH (14:31)
--- NOTE | 2020-06-08 15:04 | CDI ---
Documentation Clarification Form Date: 06/08/2020 02:30:39 PM From: Mamie La RN, CCDS Admit Date: 06/06/2020 03:02:00 AM Patient Name: Kristine Parish Visit Number: [id number] Discharge Date: ATTENTION: The Clinical Documentation Specialists (CDI) and [facility] Coding Staff appreciate your assistance in clarifying documentation. Please respond to the clarification below the line at the bottom and electronically sign. The CDI & [facility] Coding staff will review the response and follow-up if needed. Please note: Queries are made part of the Legal Health Record. If you have any questions, please contact the author of this message via ITS. Dr. Tommie Joaquin Altered Mental Status was documented in your consult on 06/06 and continue in subsequent progress notes. Please provide further clarification for the etiology of the altered mental status. History/Risk Factors: COVID-19 Pneumonia, Hashimotos, Former smoker Clinical Indicators: 40-year-old resented treated 7-8 days ago found to be positive for COVID. 06/06/2020 for evaluation of altered mental status, and low oxygen saturation she was reported to have hallucinations "likely related to hypoxemia and fever". 06/06 Labs: WBC 5.5, HGB 8.1 HCT 26.1, Sodium 135; Blood Gas pH 7.47, pCO2 33, HCO3 23 06/06 CXR: Bilateral peripheral pneumonia is slightly worse than last exam (06/03/2020) 06/06 Vital signs: 100/62 109 22 101.7 93 % RA (ED assessment: patient reports she checked her pulse ox and was at 83-84 %) Treatment: Telemetry Monitoring Blood Cultures: Pending Isolation Precautions Monitor LFT'S daily, Monitor CBC Daily Dexamethasone 6 mg po daily Remdesivir 200 mg IVPB X1, then 100 mg IVPB daily (total 5 days) Motrin 400 mg po x1 Monitor O2 Sat's (Titrate response) Tessalon Perles 200 mg po tid/prn cough In your professional opinion, please clarify the etiology of the Altered Mental Status causing hallucinations, if known. Metabolic Encephalopathy from COVID-19 Pneumonia and fever Metabolic Encephalopathy and Hypoxic Encephalopathy from COVID-19 Pneumonia and Hypoxia Hypoxic Encephalopathy likely related to hypoxemia and fever Other condition (please specify) Unable to determine (Last Revision: November 2017) MTDD
--- NOTE | 2020-06-08 15:33 | CDI ---
Documentation Clarification Form Date: 06/08/2020 03:07:00 PM From: Mamie La RN, CCDS Admit Date: 06/06/2020 03:02:00 AM Patient Name: Kristine Parish Visit Number: [id number] Discharge Date: ATTENTION: The Clinical Documentation Specialists (CDI) and [facility] Coding Staff appreciate your assistance in clarifying documentation. Please respond to the clarification below the line at the bottom and electronically sign. The CDI & [facility] Coding staff will review the response and follow-up if needed. Please note: Queries are made part of the Legal Health Record. If you have any questions, please contact the author of this message via ITS. Dr. Jaron Guajardo patient presented with resent positive COVID-19 test, shortness of breath, hallucinations, fever, and cough. Please provide your clinical diagnosis of her symptoms. History/Risk Factors: COVID-19 Pneumonitis, Leigh's Thyroiditis, Endometriosis, Former smoker Clinical Indicators: 40-year-old with recent positive COVID pneumonitis present to ED on 06/06 with complaints of her pulse ox of 83-84 %. She has been having symptoms of fever and upper respiratory symptoms since 05/27/2020. She was positive for COVID-19 on 06/02. She reports persistent cough and fevers. She had normal lung sounds bilaterally per ED assessment. 06/06 Vital signs on admission: 100/62 109 22 101.7 93 % on RA 97-98% 2/L NC 06/06 EKG: Normal sinus rhythm with an incomplete right bundle branch block. Ventricular rate is 93 06/06 Labs: WBC 5.5 HGB 8.1, HCT 26.1 NA+ 135 06/06 Lactic acid: 1.3 06/06 CXR: Bilateral peripheral pneumonia slightly worsened from last exam (06/03/2020) 06/06 Blood cultures: Pending Other Clinical Indicators: Patient seen and treated 06/02-06/04 for COVID-19 Pneumonia Treatment: Telemetry Monitoring Blood Cultures: Pending Isolation Precautions Monitor LFT'S daily, Monitor CBC Daily Dexamethasone 6 mg po daily Remdesivir 200 mg IVPB X1, then 100 mg IVPB daily (total 5 days) Motrin 400 mg po x1 Monitor O2 Sat's (Titrate response) Tessalon Perles 200 mg po tid/prn cough In your professional opinion, please clarify if these findings signify one of the following conditions, whether the condition is POA, and cause, if known: Condition Sepsis secondary to COVID-19 Pneumonia, POA (present on admission) Sepsis ruled out Other, please specify Unable to determine SIRS Criteria (2 or more of the following may indicate SIRS): -Temperature < 96.8F (36C) or > 101.0F (38.3C) -Heart Rate > 90 bpm -Respiratory Rate > 20 breaths/min or PaCO2 < 32 mmHg -White Blood Cell Count > 12,000 or < 4,000 cells/mm3 or > 10% bands -Lactate >2.0 mmol/L (>4.0 is equivalent to septic shock) (Last Revision: November 2017) patient was NEVER seen or evaluated by me. MTDD
[2020-06-08] MEDS: guaiFENesin-DM 100-10MG/5ML 10 ML CUP PO PRN (20:48)
[2020-06-08] MEDS: BENZONATATE 100 MG CAP PO PRN (20:48)
[2020-06-08] MEDS: MELATONIN 5 MG TABLET PO PRN (20:48)
[2020-06-09] MEDS: SODIUM CHLORIDE 0.9% 1,000 ML IV SCH (06:35)
[2020-06-09] MEDS: ENOXAPARIN 40 MG/0.4 ML SYRINGE SQ SCH (08:29)
[2020-06-09] MEDS: guaiFENesin 600 MG TABLET.ER PO SCH ×2 (08:30→21:17)
[2020-06-09] MEDS: PANTOPRAZOLE 40 MG TABLET PO SCH (08:30)
[2020-06-09] MEDS: dexAMETHasone 2 MG TAB PO SCH (08:30)
[2020-06-09 08:46] LABS: Basophils % (A) 0 %; Eosinophils % (A) 0 %; HCT 27.6 % (34.0-46.0); HGB 8.5 gm/dL (11.4-16.0); Hypochromasia Marked; Lymphocytes # (A) 2.3 k/uL (1.0-4.8); Lymphocytes % (A) 37 %; MCH 23.6 pg (25.0-35.0); MCHC 30.7 g/dL (31.0-37.0); MCV 76.9 fL (80.0-100.0); Mean Platelet Volume 7.2; Monocytes # (A) 0.5 k/uL (0-1.0); Monocytes % (A) 7 %; Neutrophils # (A) 3.2 k/uL (1.3-7.7); Neutrophils % (A) 51 %; Platelet Count 514 k/uL (150-450); Poikilocytosis Slight; RBC 3.59 m/uL (3.80-5.40); RDW 13.5 % (11.5-15.5); WBC 6.2 k/uL (3.8-10.6)
[2020-06-09 08:49] LABS: African American GFR (CKD) >90 (>60 ml/min/1.73 sqM); Anion Gap 3 mmol/L; Blood Urea Nitrogen 12 mg/dL (7-17); Calcium 7.8 mg/dL (8.4-10.2); Carbon Dioxide 28 mmol/L (22-30); Chloride 107 mmol/L (98-107); Glucose 85 mg/dL (74-99); LDH 516 U/L (313-618); Magnesium 1.9 mg/dL (1.6-2.3); Non-African American GFR(CKD) >90 (>60 ml/min/1.73 sqM); Potassium 4.2 mmol/L (3.5-5.1); Sodium 138 mmol/L (137-145)
[2020-06-09 10:19] LABS: C Reactive Protein 30.5 mg/L (<10.0)
[2020-06-09 10:41] VITALS: RESP 20
--- NOTE | 2020-06-09 14:10 | XR ---
EXAMINATION TYPE: XR chest 1V portable DATE OF EXAM: 06/09/2020 CLINICAL HISTORY: Covid 19, fever TECHNIQUE: Portable upright view of the chest COMPARISON: 06/06/2020 chest radiograph FINDINGS: The cardiomediastinal silhouette is within normal limits for size. Patchy bilateral airspa ce opacities are not significantly changed. No pleural effusion, or pneumothorax seen. The osseous st ructures are intact. IMPRESSION: Bilateral patchy airspace opacities are unchanged versus 06/06/2020, consistent with hist ory of Covid 19 pneumonia.
[2020-06-09] MEDS: REMDESIVIR (EUA) 100 MG in SODIUM CHLORIDE 0.9% 250 ML IVPB SCH (14:13)
--- NOTE | 2020-06-09 14:15 | P.PN ---
Subjective Progress Note Date: 06/09/20 Principal diagnosis: Altered mental status secondary to CoVID 19 40-year-old white female patient of Dr. Ayden Rankin, who was recently tested on outpatient basis for COVID 19 7-8 days ago, and was found to be positive, presented to the emergency department on 06/06/2020 for evaluation of altered mental status, and low oxygen saturation. She was recently in the hospital discharged home on 06/04/2020, at that time patient was positive for COVID 19, she was having symptoms of fever, dry cough, headaches, loss of sense of smell and taste, decreased appetite, loose stools and fatigue. Patient was treated with Rocephin and Zithromax, oral Decadron, and she was discharged home on 10 day course of oral Decadron, patient returned for reevaluation on 06/06/2020, she was febrile on presentation with a temp of 101.7F, 93% on room air, tachycardic sinus mechanism with a rate of 103 bpm. Lab work showed a white blood cell, 5.5, hemoglobin is 8.1, d-dimer was 0.19, sodium is 135, the rest of electrolytes were within normal limits, BUN is 6 creatinine 0.64, troponin is less than 0.012, proBNP was within normal limits at 210, urinalysis showed trace protein but negative for any sign of infection. Patient was started on oral Decadron, Mucinex, prophylactic doses of Lovenox, her fever was treated with Tylenol and Motrin, she is given gentle IV hydration and we will start the patient on Remdesivir. On 06/07/2020 patient seen in follow-up on selective care unit, she is resting comfortably in bed, she had one episode of low-grade fever early this morning, currently afebrile, she still continues to have some coughing spells, and her mentation seems to be appropriate, breathing is nonlabored, no hemoptysis, room air pulse ox was 91%.we started the patient on Remdesivir, she continues on oral Decadron, antipyretics, Tessalon Perles, and gentle IV hydration The patient is seen today 06/08/2020 in follow-up on the selective care unit. She is currently awake and alert in no acute distress. Resting fairly comfortably in bed. Maintaining O2 saturations in the 90s on 2 L/m per nasal cannula. She's been afebrile. White count 4.0. Hemoglobin 8.0. She is curr ently on Remdesivir, lovenox, protonix, and dexamethasone. The patient is seen today 06/09/2020 and follow-up on the selective care unit. She remains awake and alert in no acute distress. Continues with a dry nonproductive cough. No fever. Maintaining O2 saturation in the 90s on room air. She's been hemodynamically stable. A culture reveals no growth. Count 6.2. Hemoglobin 8.5. Sodium 138. Potassium 4.2. Creatinine 0.58. LDH 516. C-reactive protein 30. She remains on Remdesivir, Lovenox, Protonix, dexamethasone. Tessalon Perles, Robitussin, Mucinex. Objective - Vital Signs Vital signs: Vital Signs Temp 98.4 F 06/09/20 07:00 Pulse 70 06/09/20 07:00 Resp 20 06/09/20 07:00 BP 121/68 06/09/20 07:00 Pulse Ox 94 L 06/09/20 07:00 Intake & Output 06/08/20 06/09/20 06/09/20 18:59 06:59 18:59 Intake Total 900 600 Balance 900 600 Intake: Oral 900 600 Other: Voiding Method Toilet Toilet # Voids 2 1 1 - Exam GENERAL EXAM: Alert, pleasant, 40-year-old obese female patient on room air with a pulse ox of 94% HEAD: Normocephalic/atraumatic. EYES: Normal reaction of pupils, equal size. Conjunctiva pink, sclera white. NOSE: Clear with pink turbinates. THROAT: No erythema or exudates. NECK: No masses, no JVD, no thyroid enlargement, no adenopathy. CHEST: No chest wall deformity. Symmetrical expansion. LUNGS: Equal air entry with few scattered rhonchi CVS: Regular rate and rhythm, normal S1 and S2, no gallops, no murmurs, no rubs ABDOMEN: Soft, nontender. No hepatosplenomegaly, normal bowel sounds, no guarding or rigidity. EXTREMITIES: No clubbing, no edema, no cyanosis, 2+ pulses and upper and lower extremities. MUSCULOSKELETAL: Muscle strength and tone normal. SPINE: No scoliosis or deformity SKIN: No rashes CENTRAL NERVOUS SYSTEM: Alert and oriented -3. No focal deficits, tone is normal in all 4 extremities. PSYCHIATRIC: Alert and oriented -3. Appropriate affect. Intact judgment and insight. - Labs CBC & Chem 7: 06/09/20 07:20 06/09/20 07:20 Labs: Abnormal Lab Results - Last 24 Hours (Table) 06/09/20 06/09/20 Range/Units 07:20 07:20 RBC 3.59 L (3.80-5.40) m/uL Hgb 8.5 L (11.4-16.0) gm/dL Hct 27.6 L (34.0-46.0) % MCV 76.9 L (80.0-100.0) fL MCH 23.6 L (25.0-35.0) pg MCHC 30.7 L (31.0-37.0) g/dL Plt Count 514 H (150-450) k/uL Calcium 7.8 L (8.4-10.2) mg/dL C-Reactive Protein 30.5 H (<10.0) mg/L Microbiology - Last 24 Hours (Table) 06/06/20 02:06 Blood Culture - Preliminary Blood No Growth after 72 hours Assessment and Plan Assessment: 1 Acute hypoxic respiratory failure related to COVID 19 pneumonitis 2 Altered mental status, hallucinations, likely related to hypoxic encephalopathy secondary to CoVID 19 3 Anemia, microcytic 4 Former smoker 5 History of endometriosis 6 History of Leigh's thyroiditis 7 Recent admission from 06/02/2020 through 06/04/2020 for COVID 19, was treated with Decadron, azithromycin and Rocephin Plan: The patient was seen and evaluated by Dr. Joaquin Chest x-ray and labs reviewed Continue the current treatment plan including Remdesivir We will continue to follow I, the cosigning physician, performed a history & physical examination of the patient. Lungs sounds with few scattered rhonchi. Maintaining good O2 saturations in the 90s on room air. I discussed the assessment and plan of care with my nurse practitioner, Renee Oh. I attest to the above note as dictated by her.
--- NOTE | 2020-06-09 17:41 | P.PN ---
Progress Note - Text Progress Note Date: 06/09/20 Presenting complaint: Fever History of presenting complaint: This is a pleasant 40-year-old patient of Dr. Ayden Rankin. Chronic stable medical conditions include GERD, Leigh's, endometriosis. Patient was admitted by me on June 03, tested positive for COVID 19 pneumonia. Discharged on June 04 by . Apparently patient was very keen on going home. She she was discharged on Decadron. Patient presented with some hallucinations hypoxia fever. Patient was then put back on Decadron, Lovenox, Remdesivir. Today-feeling much better. Slight cough. Eating better. Up to the bathroom. No fever. Review of systems: Was done for constitutional, cardiovascular, GI, pulmonary. relevant finding as above Active Medications Acetaminophen (Acetaminophen Tab 325 Mg Tab) 650 mg PO Q6HR PRN PRN Reason: Mild Pain or Fever > 100.5 Last Admin: 06/07/20 23:30 Dose: 650 mg Documented by: Benzonatate (Benzonatate 100 Mg Cap) 200 mg PO TID PRN PRN Reason: Cough Last Admin: 06/08/20 20:48 Dose: 200 mg Documented by: Calcium Carbonate/Glycine (Calcium Carbonate 500 Mg Chewable) 500 mg PO QID PRN PRN Reason: Heartburn Last Admin: 06/06/20 17:12 Dose: 500 mg Documented by: Dexamethasone (Dexamethasone 2 Mg Tab) 6 mg PO DAILY [facility] Last Admin: 06/09/20 08:30 Dose: 6 mg Documented by: Enoxaparin Sodium (Enoxaparin 40 Mg/0.4 Ml Syringe) 40 mg SQ DAILY [facility] Last Admin: 06/09/20 08:29 Dose: Not Given Documented by: Guaifenesin (Guaifenesin 600 Mg Tablet.Er) 1,200 mg PO Q12HR [facility] Last Admin: 06/09/20 08:30 Dose: 1,200 mg Documented by: Guaifenesin/Dextromethorphan (Guaifenesin-Dm 100-10mg/5ml 10 Ml Cup) 10 ml PO Q6H PRN PRN Reason: Cough Last Admin: 06/08/20 20:48 Dose: 10 ml Documented by: Remdesivir 100 mg/ Sodium (Chloride) 250 mls @ 250 mls/hr IVPB DAILY@1400 [facility] Stop: 06/10/20 14:59 Last Admin: 06/09/20 14:13 Dose: 250 mls/hr Documented by: Sodium Chloride (Saline 0.9%) 1,000 mls @ 50 mls/hr IV .Q20H [facility] Last Admin: 06/09/20 06:35 Dose: Not Given Documented by: Melatonin (Melatonin 5 Mg Tablet) 5 mg PO HS PRN PRN Reason: Insomnia Last Admin: 06/08/20 20:48 Dose: 5 mg Documented by: Naloxone HCl (Naloxone 0.4 Mg/Ml 1 Ml Vial) 0.2 mg IV Q2M PRN PRN Reason: Opioid Reversal Pantoprazole Sodium (Pantoprazole 40 Mg Tablet) 40 mg PO AC-BRKFST [facility] Last Admin: 06/09/20 08:30 Dose: Not Given Documented by: Physical examination: VITAL SIGNS: 98.4, 70, 20, 121/68, 94% on room air GENERAL: Sitting on bed, comfortable EYES: Pupils equal. Conjunctiva normal. Additional examination as per pulmonary and nursing HEART: First and second heart sounds are normal; no edema. LUNGS: Respiratory rate normal; few scattered rhonchi. ABDOMEN: Soft, nontender, liver spleen not palpable, no masses palpable. PSYCH: Alert and oriented x3; mood and affect normal. INVESTIGATIONS, reviewed in the clinical context: White count 6.2 hemoglobin 8.5 MCV 76.9 platelets 514 potassium 4.2 creatinine 0.58 CRP 30.5 Chest x-ray film personally reviewed by me-bilateral scattered infiltrates Assessment: -Acute severe COVID 19 pneumonia, POA -Acute delirium, POA from pneumonia -Microcytic anemia, chronic from heavy menorrhagia from endometriosis -Morbid obesity BMI 40.7 -Anosmia -Sepsis from above pneumonia, POA -Acute hypoxic respiratory failure from pneumonia, POA Plan: Continue current medication treatment plan including Remdesivir, Lovenox, dexamethasone. Discussed with the patient. Follow with pulmonary.
[2020-06-09] MEDS: MELATONIN 5 MG TABLET PO PRN (21:17)
[2020-06-10] MEDS: SODIUM CHLORIDE 0.9% 1,000 ML IV SCH (03:11)
[2020-06-10 06:22] LABS: C Reactive Protein 23.1 mg/L (<10.0)
[2020-06-10 08:29] VITALS: BP 100/64; PULSE 76; TEMP 98.2
[2020-06-10] MEDS: dexAMETHasone 2 MG TAB PO SCH (08:59)
[2020-06-10] MEDS: guaiFENesin 600 MG TABLET.ER PO SCH (08:59)
[2020-06-10] MEDS: PANTOPRAZOLE 40 MG TABLET PO SCH (08:59)
[2020-06-10] MEDS: ENOXAPARIN 40 MG/0.4 ML SYRINGE SQ SCH (09:01)
--- NOTE | 2020-06-10 12:24 | P.PN ---
Subjective Progress Note Date: 06/10/20 Principal diagnosis: cough, congestion, altered mental status, COVID 19 40-year-old white female patient of Dr. Ayden Rankin, who was recently tested on outpatient basis for COVID 19 7-8 days ago, and was found to be positive, presented to the emergency department on 06/06/2020 for evaluation of altered mental status, and low oxygen saturation. She was recently in the hospital discharged home on 06/04/2020, at that time patient was positive for COVID 19, she was having symptoms of fever, dry cough, headaches, loss of sense of smell and taste, decreased appetite, loose stools and fatigue. Patient was treated with Rocephin and Zithromax, oral Decadron, and she was discharged home on 10 day course of oral Decadron, patient returned for reevaluation on 06/06/2020, she was febrile on presentation with a temp of 101.7F, 93% on room air, tachycardic sinus mechanism with a rate of 103 bpm. Lab work showed a white blood cell, 5.5, hemoglobin is 8.1, d-dimer was 0.19, sodium is 135, the rest of electrolytes were within normal limits, BUN is 6 creatinine 0.64, troponin is less than 0.012, proBNP was within normal limits at 210, urinalysis showed trace protein but negative for any sign of infection. Patient was started on oral Decadron, Mucinex, prophylactic doses of Lovenox, her fever was treated with Tylenol and Motrin, she is given gentle IV hydration and we will start the patient on Remdesivir. On 06/07/2020 patient seen in follow-up on selective care unit, she is resting comfortably in bed, she had one episode of low-grade fever early this morning, currently afebrile, she still continues to have some coughing spells, and her mentation seems to be appropriate, breathing is nonlabored, no hemoptysis, room air pulse ox was 91%.we started the patient on Remdesivir, she continues on oral Decadron, antipyretics, Tessalon Perles, and gentle IV hydration On 06/10/2020 patient seen in follow-up on the general medical surgical floor. Room air pulse ox is 96%, patient is afebrile, hemodynamically stable, feeling much better today, breathing comfortably, her cough has improved. Vital signs are stable, patient has received 4 Remdesivir treatments, she continues on IV hydration of 0.9 normal saline at a rate of 50 ML per hour. Inflammatory markers are improving Objective - Vital Signs Vital signs: Vital Signs Temp 98.2 F 06/10/20 07:00 Pulse 76 06/10/20 07:00 Resp 20 06/09/20 21:15 BP 100/64 06/10/20 07:00 Pulse Ox 96 06/10/20 07:00 Intake & Output 06/09/20 06/10/20 06/10/20 18:59 06:59 18:59 Intake Total 1500 50 Balance 1500 50 Intake: Intake, IV Titration 50 Amount Sodium Chloride 0.9% 1, 50 000 ml @ 50 mls/hr IV . Q20H [facility] Rx#:[id number] Oral 1500 Other: # Voids 1 1 - Exam GENERAL EXAM: Alert, very pleasant, 40-year-old obese white female on room air with a pulse ox of 94% loose congested cough HEAD: Normocephalic/atraumatic. EYES: Normal reaction of pupils, equal size. Conjunctiva pink, sclera white. NOSE: Clear with pink turbinates. THROAT: No erythema or exudates. NECK: No masses, no JVD, no thyroid enlargement, no adenopathy. CHEST: No chest wall deformity. Symmetrical expansion. LUNGS: Equal air entry with no crackles, wheeze, rhonchi or dullness. CVS: Regular rate and rhythm, normal S1 and S2, no gallops, no murmurs, no rubs ABDOMEN: Soft, nontender. No hepatosplenomegaly, normal bowel sounds, no guarding or rigidity. EXTREMITIES: No clubbing, no edema, no cyanosis, 2+ pulses and upper and lower extremities. MUSCULOSKELETAL: Muscle strength and tone normal. SPINE: No scoliosis or deformity SKIN: No rashes CENTRAL NERVOUS SYSTEM: Alert and oriented -3. No focal deficits, tone is normal in all 4 extremities. PSYCHIATRIC: Alert and oriented -3. Appropriate affect. Intact judgment and insight. - Labs CBC & Chem 7: 06/09/20 07:20 06/09/20 07:20 Labs: Abnormal Lab Results - Last 24 Hours (Table) 06/10/20 Range/Units 05:42 C-Reactive Protein 23.1 H (<10.0) mg/L Microbiology - Last 24 Hours (Table) 06/06/20 02:06 Blood Culture - Preliminary Blood No Growth after 96 hours Assessment and Plan Plan: Assessment: #1. Acute hypoxic respiratory failure related to COVID 19 pneumonitis, resolved #2. Altered mental status, hallucinations likely related to hypoxemia and fever, improved #3. Anemia, microcytic #4. Former smoker #5. History of endometriosis #6. History of Leigh's thyroiditis #7. Recent admission from 06/02/2020 through 06/04/2020 for COVID 19, was treated with Decadron, azithromycin and Rocephin Plan: Continue current medical treatment, hemodynamically stable, afebrile, mental status has completely recovered, no acute events overnight, she is completing the course of the wound as it air, breathing comfortably, no nausea vomiting or diarrhea. Possible discharge home today or tomorrow. I performed a history & physical examination of the patient and discussed their management with my nurse practitioner, Sydney Arias. I reviewed the nurse practitioner's note and agree with the documented findings and plan of care. Lung sounds are positive for diminished breath sounds, and diffuse wheezes The findings and the impression was discussed with the patient. I attest to the documentation by the nurse practitioner. Time with Patient: Less than 30
[2020-06-10] MEDS: REMDESIVIR (EUA) 100 MG in SODIUM CHLORIDE 0.9% 250 ML IVPB SCH (13:39)
--- NOTE | 2020-06-11 00:08 | P.DS ---
Providers Date of admission: 06/06/20 03:02 Expected date of discharge: 06/10/20 Attending physician: Alonso Pink Consults: 06/06/20 07:23 Consult Physician Routine Consulting Provider: Jen Fofana Consult Reason/Comments: COVID+ Do you want consulting provider notified?: Yes Primary care physician: Ayden Rankin [facility] Course: Presenting complaint: Fever History of presenting complaint: This is a pleasant 40-year-old patient of Dr. Ayden Rankin. Chronic stable medical conditions include GERD, Leigh's, endometriosis. Patient was admitted by me on June 03, tested positive for COVID 19 pneumonia. Discharged on June 04 by . Apparently patient was very keen on going home. She she was discharged on Decadron. Patient presented with some hallucinations hypoxia fever. Patient was then put back on Decadron, Lovenox, Remdesivir. Today-much improved. Up and about. Minimal cough. Breathing well. Pulse oximeter on room air. Appetite is good. Discussed with the patient. Keen to go home. Consultation: Dr. Joaquin from pulmonary Physical examination: VITAL SIGNS: 98.2, 76, 16, 100/64, 96% room air GENERAL: Sitting on bed, comfortable INVESTIGATIONS, reviewed in the clinical context: CRP 23.1 Previous testing White count 6.2 hemoglobin 8.5 MCV 76.9 platelets 514 potassium 4.2 creatinine 0.58 Chest x-ray film personally reviewed by me-bilateral scattered infiltrates Assessment: -Acute severe COVID 19 pneumonia, POA -Acute delirium, POA from pneumonia -Microcytic anemia, chronic from heavy menorrhagia from endometriosis -Morbid obesity BMI 40.7 -Anosmia -Sepsis from above pneumonia, POA -Acute hypoxic respiratory failure from pneumonia, POA Disposition: Home. Quarantine instructions Patient Condition at Discharge: Stable Plan - Discharge Summary Discharge Rx Participant: No New Discharge Prescriptions: Continue Cholestyramine (with Sugar) [Questran Packet] 4 gm PO TID PRN #30 packet PRN Reason: Diarrhea Discontinued dexAMETHasone [Hexadrol] 4 mg PO DAILY #10 tab Discharge Medication List Cholestyramine (with Sugar) [Questran Packet] 4 gm PO TID PRN #30 packet 06/04/20 [Rx] Follow up Appointment(s)/Referral(s): Ayden Rankin MD [Primary Care Provider] - 06/16/20 11:30 am Jen Fofana MD [STAFF PHYSICIAN] - 07/27/20 2:00 pm Patient Instructions/Handouts: Community Acquired Pneumonia (DC) Activity/Diet/Wound Care/Special Instructions: covid 19 dc instructions Discharge Disposition: HOME SELF-CARE
== END 2020-06-10 15:02 | disposition home or self-care (01) | DRG 871 ==
LOC: EC 01:25 → 3SCARD 03:02 → 4SSUR 06-09 21:04
PROVIDERS: ADMIT Hospitalist; ATTEND Hospitalist
DX: A41.89 Other specified sepsis (principal); J12.89 Other viral pneumonia; U07.1 COVID-19; J96.01 Acute respiratory failure with hypoxia; Z68.41 Body mass index [BMI] 40.0-44.9, adult; R44.3 Hallucinations, unspecified; F05 Delirium due to known physiological condition; G93.1 Anoxic brain damage, not elsewhere classified; E66.01 Morbid (severe) obesity due to excess calories; D50.9 Iron deficiency anemia, unspecified; E06.3 Autoimmune thyroiditis; N80.9 Endometriosis, unspecified; R43.0 Anosmia; K21.9 Gastro-esophageal reflux disease without esophagitis; N92.0 Excessive and frequent menstruation with regular cycle; Z88.5 Allergy status to narcotic agent; Z90.49 Acquired absence of other specified parts of digestive tract; Z98.890 Other specified postprocedural states; Z87.891 Personal history of nicotine dependence
CPT/HCPCS: 36415; 71045; 80048; 80053; 81003; 82550; 82728; 82803; 83605; 83615; 83735; 83880; 84484; 85025; 85379; 85610; 85730; 86140; 87040; 93005; 96360; 99285

== ENCOUNTER → 2021-11-09 | Outpatient (CLI) | payer OTHER ==
--- NOTE | 2021-11-09 18:11 | MR ---
EXAMINATION TYPE: MR lspine/sacrum wo con DATE OF EXAM: 11/09/2021 COMPARISON: None HISTORY: Low back pain that radiates down left leg, nerve problem around rectum causing problems usin g bathroom for 2 months. History of surgery 2014 TECHNIQUE: Multiplanar, multisequence imaging of the lumbar spine and sacrum is performed without IV contrast. FINDINGS: Sagittal images of the lumbar spine show vertebral body heights and alignment to appear sat isfactory. The intervertebral discs demonstrate loss of disc height and signal greatest at L4-5 with associated spondylosis, there is loss of disc signal at L3-4. The conus medullaris is normal in posi tion and signal. Endplate discogenic marrow signal change present L4-5, suspect there is a transition al vertebral body Posterior disc bulge noted L4-5, there is some facet arthropathy change. Circumferential extension of endplate disc complex encroaches somewhat on the right foramen inferior aspect. Facet arthropathy ch anges also present at L3-4, L2-3 causing some posterior lateral mass effect on the thecal sac. There is no significant spinal stenosis. The sacrum shows no fracture. Bone marrow signal shows red marrow reconversion, correlate for possible anemia. Pelvis shows a left ovarian cyst incidentally, multiple nabothian cysts and possibly additional cysts present within the cervix region. Left ovarian cyst measures 3.9 cm. Common bile duct appears dilate d. IMPRESSION: Degenerative disc disease, correlate for possible anemia. Left ovarian cyst. Additional f indings above.
== END | disposition home or self-care (01) ==
LOC: RADMRIMAIN 15:16
PROVIDERS: ATTEND Family Medicine
DX: M51.16 Intervertebral disc disorders with radiculopathy, lumbar region (principal)
CPT/HCPCS: 72148; 72195

== ENCOUNTER → 2021-11-16 | Outpatient (CLI) | payer OTHER ==
--- NOTE | 2021-11-16 12:41 | CT ---
EXAMINATION TYPE: CT abdomen pelvis wo con DATE OF EXAM: 11/16/2021 COMPARISON: Ultrasound dated 01/26/2015 HISTORY: Severe vaginal bleeding. CT DLP: 1213 mGycm Automated exposure control for dose reduction was used. TECHNIQUE: Helical acquisition of images was performed from the lung bases through the pelvis. No IV contrast administration. FINDINGS: LUNG BASES: No significant abnormality is appreciated. LIVER/GB: Previous cholecystectomy. Enlarged liver measuring 21.2 cm. 2.5 x 2.9 cm focal central hepa tic hypodensity, incompletely characterized and could represent focal fat infiltration. Further elect richard ultrasound assessment can be considered. No other definite hepatic focal lesion by this nonenhanc ed CT scan. PANCREAS: No significant abnormality is seen. SPLEEN: No significant abnormality is seen. ADRENALS: No significant abnormality is seen. KIDNEYS: Grossly unremarkable. FREE AIR: No free air is visualized RETROPERITONEAL ADENOPATHY: None visualized REPRODUCTIVE ORGANS: Uterine cervix hypodensities measuring up to 2.3 cm, likely representing nabothi an cysts. No significant endometrial thickening or gross uterine lesion identified otherwise. Bilater al ovarian follicles/cysts measuring up to 2 cm on the left side. No gross adnexal lesion. Tiny air b ubble and suspected cystic area are seen at the superior aspect of the vagina, suboptimally assessed by this CT scan. Further ultrasound assessment can be considered. URINARY BLADDER: Nondistended PELVIC ADENOPATHY: None visualized. OSSEOUS STRUCTURES: Degenerative changes of the lower lumbar spine and sacroiliac joints. No aggress richard bone lesion. BOWEL: Unremarkable stomach, duodenum and small bowel. Scattered uncomplicated colonic diverticulosi s, otherwise grossly unremarkable colon. Normal appendix. OTHER: Small fat-containing umbilical hernia. No sizable ascites. IMPRESSION: Suspected uterine cervix nabothian cysts with air bubble and cystic area in the superior aspect of th e vagina as described above, incompletely characterized. Recommend further ultrasound assessment. No gross uterine or adnexal mass otherwise. Other incidental findings as described above.
== END | disposition home or self-care (01) ==
LOC: RADCTMAIN 11:49
PROVIDERS: ATTEND Family Medicine
DX: K83.9 Disease of biliary tract, unspecified (principal)
CPT/HCPCS: 74176

== ENCOUNTER → 2021-11-17 | Outpatient (CLI) | payer OTHER ==
--- NOTE | 2021-11-17 13:15 | US ---
EXAMINATION TYPE: US pelvis complete transvag DATE OF EXAM: 11/17/2021 COMPARISON: CT abdomen and pelvis from yesterday CLINICAL HISTORY: N83.209 OVARIAN CYST. TECHNIQUE: Transvaginal (TV) and Transabdominal (TA) . Transvaginal sonographic images of the pelvi s were acquired. Transabdominal sonographic images were medically necessary to better assess the fol lowing anatomy: ovaries. Date of LMP: 11-09-21 EXAM MEASUREMENTS: Uterus: 11.0 x 4.8 x 7.2 cm Endometrial Stripe: 0.7 cm Right Ovary: Obscured by overlying bowel gas/obesity Left Ovary: Obscured by overlying bowel gas/obesity Patient of very large body habitus, technically difficult limited study. 1. Uterus: Anteverted, multiple nabothians 2. Endometrium: wnl 3. Right Ovary: Obscured by overlying bowel gas/obesity 4. Left Ovary: Obscured by overlying bowel gas/obesity 5. Bilateral Adnexa: wnl 6. Posterior cul-de-sac: wnl Multiple nabothian cysts of varying size and shape throughout the cervix including dominant near 2.[address] to [address] abnormality. Heterogeneous uterus. Endometrial stripe measures 6 to 7 mm which is within normal limits. No free fluid in pelvis. Neither ovary clearly identified on CT. No suspicious extra ovarian adnexal masses on ultrasound. CT one day earlier showed symmetric sized ovaries with symmetric round low dense 2.0 cm lesions likely r eflecting prominent follicles or simple thin walled ovarian cyst. They cannot be reproduced on ultras ound images to further evaluate. IMPRESSION: As above.
== END | disposition home or self-care (01) ==
LOC: RADUSWWP 12:17
PROVIDERS: ATTEND Family Medicine
DX: N83.209 Unspecified ovarian cyst, unspecified side (principal)
CPT/HCPCS: 76830; 76856

== ENCOUNTER → 2021-11-17 | Outpatient (CLI) | payer OTHER ==
[~2021-11-17] MED LIST changes: +IRON SUCROSE 200 MG in SODIUM CHLORIDE 0.9% 100 ML IVPB NR; -LACTATED RINGERS 1,000 ML IV SCH; -PROPOFOL 10 MG/ML 20 ML VIAL IV ONE; +SODIUM CHLORIDE 0.9% 500 ML 500 ML in EMPTY BAG 1 BAG IV PRN
[2021-11-17 08:01] VITALS: BP 129/87; PULSE 98; RESP 16; TEMP 98.8
== END | disposition home or self-care (01) ==
LOC: PROCWHC3 07:33
PROVIDERS: ATTEND Nurse Practitioner Adult Health
DX: D50.9 Iron deficiency anemia, unspecified (principal)
CPT/HCPCS: 96365; J1756

== ENCOUNTER → 2021-12-18 | Outpatient (CLI) | payer OTHER ==
[2021-12-18 23:33] LABS: HCT 38.4 % (37.2-46.3); HGB 9.7 g/dL (12.0-15.0); MCH 18.8 pg (27.0-32.0); MCHC 25.3 g/dL (32.0-37.0); MCV 74.3 fL (80.0-97.0); Mean Platelet Volume 9.5 fL (9.5-12.2); NRBC Per 100 WBC 0 /100 WBCS (0.0-0.0); Platelet Count 508 X 10*3/uL (140-440); RBC 5.17 X 10*6/uL (4.10-5.20); RDW 26.9 % (11.5-14.5); WBC 7.85 X 10*3/uL (4.50-10.00)
[2021-12-19 00:04] LABS: Basophils # (A) 0.09 X 10*3/uL (0.00-0.10); Basophils % (A) 1.1 %; Eosinophils # (A) 0.27 X 10*3/uL (0.04-0.35); Eosinophils % (A) 3.4 %; Immature Grans, Automated 0.4 %; Lymphocytes # (A) 2.57 X 10*3/uL (0.90-5.00); Lymphocytes % (A) 32.7 %; Monocytes # (A) 0.52 X 10*3/uL (0.20-1.00); Monocytes % (A) 6.6 %; Neutrophils # (A) 4.37 X 10*3/uL (1.80-7.70); Neutrophils % (A) 55.8 %
[2021-12-19 00:05] LABS: Elliptocytes 2+; Microcytosis (M) 2+
[2021-12-19 02:55] LABS: Anion Gap 12.2 mmol/L (10.00-18.00); Blood Urea Nitrogen 7.4 mg/dL (9.0-27.0); Carbon Dioxide 23.2 mmol/L (20.0-27.5); Non-African American GFR(CKD) 96.6 (60.0-200.0); Potassium 4.4 mmol/L (3.5-5.5)
== END | disposition home or self-care (01) ==
LOC: LABWHC1 09:22
PROVIDERS: ATTEND Obstetrics & Gynecology
DX: Z01.812 Encounter for preprocedural laboratory examination (principal); D64.9 Anemia, unspecified; R10.2 Pelvic and perineal pain; N92.1 Excessive and frequent menstruation with irregular cycle; N94.10 Unspecified dyspareunia
CPT/HCPCS: 36415; 80051; 82565; 82947; 84520; 85025; 87086

== ENCOUNTER 2021-12-26 05:41 | Observation (INO) | payer OTHER ==
[2021-12-22 12:44] VITALS: BMI 38.6
[~2021-12-26 05:41] MED LIST changes: -IRON SUCROSE 200 MG in SODIUM CHLORIDE 0.9% 100 ML IVPB NR; +LACTATED RINGERS 1,000 ML IV SCH; +LIDOCAINE 1% (10MG/ML) FOR IV START INTRADERMA PRN; -SODIUM CHLORIDE 0.9% 500 ML 500 ML in EMPTY BAG 1 BAG IV PRN
[2021-12-26] MEDS ORDERED: ONDANSETRON 4 MG/2 ML VIAL IVP PRN ×2 (07:00→09:32)
[2021-12-26] MEDS ORDERED: HYDROmorphone 0.5 MG/0.5 ML SYRINGE IVP PRN (07:00)
[2021-12-26] MEDS ORDERED: MIDAZOLAM 2 MG/2 ML VIAL IV ONE (07:02)
[2021-12-26] MEDS ORDERED: SUCCINYLCHOLINE CHLORIDE 100 MG/5 ML SYR IV ONE (07:24)
[2021-12-26] MEDS ORDERED: LIDOCAINE 2% INJ 20 MG/ML (2 ML VIAL) ONE (07:24)
[2021-12-26] MEDS ORDERED: ROPIVACAINE 5 MG/ML 30 ML VIAL ONE (07:24)
[2021-12-26] MEDS ORDERED: ROCURONIUM 10 MG/ML (5 ML VIAL) IV ONE (07:24)
[2021-12-26] MEDS ORDERED: PROPOFOL 10 MG/ML 20 ML VIAL IV ONE (07:24)
[2021-12-26] MEDS ORDERED: MIDAZOLAM 2 MG/2 ML VIAL ONE (07:24)
[2021-12-26] MEDS ORDERED: DEXAMETHASONE SOD PHOSPHATE 4 MG/ML 1 ML VIAL ONE (07:24)
[2021-12-26] MEDS ORDERED: SODIUM CHLORIDE 0.9% (PF) 10 ML VIAL ONE (07:24)
[2021-12-26] MEDS ORDERED: HYDROmorphone (PF) 1 MG/ML ONE (07:24)
[2021-12-26] MEDS ORDERED: fentaNYL (PF) 50 MCG/ML 2 ML AMP ONE (07:24)
[2021-12-26] MEDS ORDERED: BUPIVACAINE (PF) 0.25% 30 ML VIAL SQ ONE (08:28)
[2021-12-26] MEDS ORDERED: LACTATED RINGERS 1,000 ML IV ONE (08:31)
[2021-12-26] MEDS ORDERED: diphenhydrAMINE 50 MG/ML 1 ML VIAL IVP PRN (09:32)
[2021-12-26] MEDS ORDERED: IBUPROFEN 600 MG TAB PO PRN (09:32)
[2021-12-26] MEDS ORDERED: Acetaminophen-Codeine 300-30mg TAB PO PRN ×2 (09:32)
[2021-12-26] MEDS ORDERED: SIMETHICONE 80 MG CHEWABLE PO PRN (09:32)
[2021-12-26] MEDS ORDERED: METOCLOPRAMIDE 5 MG/ML 2 ML VIAL IVP PRN (09:32)
[2021-12-26] MEDS ORDERED: LACTATED RINGERS 1,000 ML IV SCH (09:45)
--- NOTE | 2021-12-26 09:45 | P.OP ---
Date of Procedure: 12/26/21 Preoperative Diagnosis: #1. Menometrorrhagia #2. Dyspareunia #3. Chronic pelvic pain #4. Anemia Postoperative Diagnosis: Same Procedure(s) Performed: #1. Da Hernán robotically assisted laparoscopic hysterectomy with bilateral salpingectomy #2. Diagnostic cystoscopy Anesthesia: MALIK Surgeon: Mitch Rowe Carpenter Refrigerator #1: Kristine Benítez Estimated Blood Loss (ml): 50 IV fluids (ml): 1,000 Urine output (ml): 300 Pathology: other (Uterus and bilateral fallopian tubes) Condition: stable Disposition: PACU Operative Findings: Preoperatively the patient was noted to have a large cervix making complete containment with the cervical cup borderline. Intraoperatively, the uterus, tubes, and ovaries were normal to inspection though the uterus was generally enlarged. There were some bleb-like cystic structures on the left lower uterine segment which were removed with the uterus. After the procedure, the bladder was undamaged both from the laparoscopic perspective and from the cystoscopic perspective. The bilateral ureteral hallux were noted to be peristalsing. Description of Procedure: The patient was prepped and draped in usual fashion after general endotracheal anesthesia was administered by the anesthesiologist. A speculum was placed and the anterior lip of the cervix grasped with a single-tooth tenaculum. Serial dilation was carried out to admit a [facility] uterine manipulator with a large cervical cup which was placed in standard fashion. The bladder wasn't catheterized with a Roberts catheter. Attention was then turned to the abdomen where a site was selected approximately 3-4 cm above the umbilicus in the midline where an 8 mm incision was made in the transverse plane. An 8 mm da Hernán optical trocar was entered into the abdomen without difficulty and a pneumoperitoneum established. A site was selected approximate 10-12 cm lateral and 4-5 cm inferior on the left side where another 8 mm incision was made in the transverse plane. This allowed placement of an 8 mm da Hernán trocar under direct visualization without difficulty. The difference between the 2 trochars was bisected and a site selected approximately 3-4 cm above the level of the o ptical trocar where a 1 cm incision was made allowing insertion of oh 10 mm commissary assistant port under direct position without difficulty. A site similar to the left lower quadrant site was placed in the right lower quadrant. The robot was then docked to the patient in the left arm loaded with the [place] bipolar cautery forceps while the right arm was loaded with a monopolar cautery scissors. I then presented to the console. The left fallopian tube was dissected from the underlying ovary leaving the infundibulopelvic ligament intact. At the level of the uterus the utero-ovarian ligament ligament was cauterized and cut through and across the round ligament using bipolar cautery followed by monopolar cut. The bladder peritoneum was then developed across the midline. Uterine vasculature was skeletonized and the vessels cauterized with bipolar and then cut with the monopolar scissors. Attention was then turned to the patient's right side where a similar operation was carried out again without difficulty. The bladder peritoneum was developed to the midline and connected to the previous dissection. The bladder was then sharply and bluntly dissected from the underlying cervix and swept distally. After the uterine blood vessels had been thoroughly cauterized and cut bilaterally the vagina was entered with monopolar and bipolar cutting to identify the vaginal cup. The rim was then followed circumferentially around the uterus and the specimen removed into the vagina. There did appear to be a small piece of anterior cervix which may have been left behind but was incorporated into the closure of the vaginal cuff. The scissors were then replaced with a laparoscopic suturing device and a piece of 0 Stratafix suture was utilized to close the cuff from angle to angle in standard fashion. The cuff was then thoroughly irrigated and suctioned and appeared to be entirely hemostatic. I then returned to the patient remove the Roberts catheter and introduced a diagnostic cystoscope into the bladder. This was then distended with normal saline. There was no evidence of damage from either the laparoscopic or cystoscopic perspective. The bilateral ureteral Bedias were examined and noted to be peristalsing normally. The scope was removed and the Roberts catheter replaced. The robot was undocked and all ports removed. The pneumoperitoneum was thoroughly evacuated and the skin incisions closed with interrupted subcuticular stitches of 4-0 Vicryl followed by half-inch Steri- Strips and Band-Aids. Estimated blood loss for the case was approximately 50 mL or less. There were no complications. All sponge, instrument, and needle counts were correct. The patient tolerated the procedure well and proceeded to the recovery room in stable condition.
[2021-12-26 10:06] VITALS: RESP 16
[2021-12-26] MEDS: KETOROLAC 15 MG/ML 1 ML VIAL IVP PRN ×2 (15:48→21:38)
[2021-12-26] MEDS ORDERED: SENNOSIDES-DOCUSATE SODIUM 1 EACH TAB PO SCH (21:00)
[2021-12-26 21:07] VITALS: TEMP 98.2
[2021-12-27 05:56] LABS: Anisocytosis Moderate; Basophils # (A) 0.1 k/uL (0-0.2); Basophils % (A) 0 %; Eosinophils % (A) 0 %; HCT 37.2 % (34.0-46.0); HGB 10.5 gm/dL (11.4-16.0); Hypochromasia Marked; Lymphocytes # (A) 2.2 k/uL (1.0-4.8); Lymphocytes % (A) 17 %; MCH 20.9 pg (25.0-35.0); MCHC 28.2 g/dL (31.0-37.0); Mean Platelet Volume 6.6; Microcytosis Marked; Monocytes # (A) 0.5 k/uL (0-1.0); Monocytes % (A) 4 %; Neutrophils # (A) 10.1 k/uL (1.3-7.7); Neutrophils % (A) 77 %; Platelet Count 468 k/uL (150-450); RBC 5.03 m/uL (3.80-5.40)
[2021-12-27 08:39] VITALS: BP 122/79; PULSE 94
--- NOTE | 2021-12-27 09:01 | P.DS ---
Providers Date of admission: 12/26/21 22:31 Expected date of discharge: 12/27/21 Attending physician: Mitch Rowe Primary care physician: Ayden Rankin - Discharge Diagnosis(es) (1) Chronic pelvic pain in female Current Visit: Yes Status: Acute (2) Dyspareunia Current Visit: Yes Status: Acute (3) Menometrorrhagia Current Visit: Yes Status: Acute Hospital Course: The patient is a 41-year-old 6 para [id number] who presented to the office on referral for chronic pelvic and low back pain. Further questioning demonstrated that she also has significant dyspareunia as well as a long history of menometrorrhagia and subsequent anemia. Given her unique set of symptoms, the decision was made to proceed with definitive therapy with hysterectomy. Examination the office demonstrated that a da Hernán approach made to best then sprayed she was taken the operating room where she underwent da Hernán robotically assisted laparoscopic hysterectomy with bilateral salpingectomy and subsequent diagnostic cystoscopy. This was carried out in an uncomplicated fashion. Her postoperative course was entirely unremarkable with vital signs remaining stable and her temperature was afebrile throughout. She was deemed stable for discharge on operative day #1 was discharged home to follow-up in the office in 2 weeks for recheck and 8 weeks routinely. Discharge instructions included calling for any significantly increased bleeding, fever, pain, incisional problems, or anything else that concerned her. She was additionally instructed to have nothing in the vagina for at least 8 weeks time to include intercourse. She understood all of her instructions and agrees to follow up as noted above. Discharge medications included any home medications that she might be taking as well as a prescription for Tylenol 3, 1-2 by mouth every 6 hours when necessary pain, #20 dispensed with no refills. Discharge hemoglobin and hematocrit were 10.5 and 37.2 respectively. Procedures: #1. Da Hernán robotically assisted laparoscopic hysterectomy #2. Patient Condition at Discharge: Stable Plan - Discharge Summary Discharge Rx Participant: Yes New Discharge Prescriptions: No Action Omeprazole [PriLOSEC] 20 mg PO AC-BID PRN PRN Reason: Heartburn Gabapentin [Neurontin] 100 mg PO TID Ferrous Sulfate [Iron] 325 mg PO BID Discharge Medication List Ferrous Sulfate [Iron] 325 mg PO BID 11/17/21 [History] Gabapentin [Neurontin] 100 mg PO TID 11/17/21 [History] Omeprazole [PriLOSEC] 20 mg PO AC-BID PRN 12/22/21 [History] Follow up Appointment(s)/Referral(s): Mitch Rowe MD [STAFF PHYSICIAN] - 2 Weeks Discharge Disposition: HOME SELF-CARE
--- NOTE | 2021-12-27 09:25 | P.ANPRN ---
Procedure Note - Anesthesia - Nerve Block Performed Bilateral Erector Spinae Single Time Out Performed: Yes Date of Procedure: 12/26/21 Procedure Start Time: 07:00 Procedure Stop Time: 07:13 Location of Patient: PreOp Indication: Acute Post-Operative Pain, Requested by Surgeon Sedation Type: Sedate with meaningful contact maintained Preparation: Sterile Prep Position: Prone Needle Types: Pajunk Needle Gauge: 21 Ultrasound used to visualize needle placement: Yes Ultrasound used to observe medication spread: Yes Blood Aspirated: No Pain Paresthesia on Injection Noted: No Resistance on Injection: Normal Image Stored and Saved: Yes Events: Uneventful and Well Tolerated (ropi .5% 15cc plus normal saline 10cc plus dexmethasone 4 mg at L1 given bilaterally)
[2021-12-27] MEDS ORDERED: ACETAMINOPHEN TAB 325 MG TAB PO PRN (09:34)
== END 2021-12-27 12:07 | disposition home or self-care (01) ==
LOC: OR 05:41 → 4FBP 09:19 → OR 22:31
PROVIDERS: ADMIT Obstetrics & Gynecology; ATTEND Obstetrics & Gynecology
DX: N92.1 Excessive and frequent menstruation with irregular cycle (principal); N94.10 Unspecified dyspareunia; G89.29 Other chronic pain; R10.2 Pelvic and perineal pain; D64.9 Anemia, unspecified; E07.9 Disorder of thyroid, unspecified; Z98.890 Other specified postprocedural states; Z90.49 Acquired absence of other specified parts of digestive tract; Z88.1 Allergy status to other antibiotic agents; Z88.5 Allergy status to narcotic agent; Z88.8 Allergy status to other drugs, medicaments and biological substances; Z80.3 Family history of malignant neoplasm of breast; Z80.0 Family history of malignant neoplasm of digestive organs; Z79.899 Other long term (current) drug therapy
CPT/HCPCS: 58571; S2900; 81025; 85025; 86850; 86900; 86901; 88307

== ENCOUNTER 2022-07-10 06:41 | Day surgery (SDC) | payer OTHER ==
[~2022-07-10 06:41] MED LIST changes: -LIDOCAINE 1% (10MG/ML) FOR IV START INTRADERMA PRN
[2022-07-10 07:12] VITALS: RESP 16; TEMP 97.6
[2022-07-10] MEDS ORDERED: ROPIVACAINE 5 MG/ML 20 ML AMPULE ONE (07:34)
[2022-07-10] MEDS ORDERED: fentaNYL (PF) 50 MCG/ML 2 ML AMP ONE (07:34)
[2022-07-10] MEDS ORDERED: MIDAZOLAM 2 MG/2 ML VIAL ONE (07:34)
[2022-07-10] MEDS ORDERED: methylPREDNISolone ACETATE 40 MG/ML 1 ML VIAL ONE (07:34)
[2022-07-10] MEDS ORDERED: IOPAMIDOL M200 10 ML VIAL ONE (07:34)
--- NOTE | 2022-07-10 07:41 | P.PCN ---
Date of Procedure: 07/10/22 Description of Procedure: Procedure: Sacroiliac joint injection left Preoperative diagnosis: Sacroiliitis Postoperative diagnosis: Sacroiliitis Imaging: Fluoroscopy was used, images where saved to the medical record Complications: none ANESTHESIA: Medication Administered by: Nurse Sedation Type: Moderate sedation Sedation Supervision start time: 734 Sedation Supervision end time: 742 Description of the procedure: procedure risk and benefits discussed with the patient, including but not limited, risk of infection and bleeding, and allergic reaction to the medication and incomplete pain relief. I did explain to the patient that it is unlikely that this SI joint pain is causing her genitourinary dysfunctions. She is ready had consultation with pathology supervisor and dye range operator and has had a hysterectomy. She understands that this injections unlikely to help with any of her urogenital symptoms. Patient agreed and signed consent. Patient was taken to the room and placed in a prone position. Chlorhexidine was used to cleanse the skin. Under sterile conditions patient skin was anesthetized 1% lidocaine. Subcutaneous tissues were also anesthetized with a total 5 mL of 1% lidocaine. After that, a 22-gauge spinal needle was advanced through the anesthetized location under fluoroscopic guidance. Needle was advanced into the inferior portion of the sacroiliac joint. IV contrast was used to confirm spread within the joint. After adequate spread was achieved, 2.5 ML's of 0.5% ropivacaine with 40 mg of depomedrol was injected into the joint. Patient tolerated the procedure well. Sent to the recovery room in stable condition. Patient will follow up as directed.
[2022-07-10] MEDS ORDERED: IV FLUID CONTINUATION 1,000 ML IV ONE (07:45)
[2022-07-10 08:10] VITALS: BP 114/92; PULSE 70
--- NOTE | 2022-07-10 12:54 | FL ---
EXAMINATION TYPE: FL guided pain mgmt statistic DATE OF EXAM: 07/10/2022 HISTORY: Fluoroscopy time 3 seconds of fluoroscopy provided. IMPRESSION: 1. Fluoroscopy time.
== END 2022-07-10 08:11 | disposition home or self-care (01) ==
LOC: ORPAIN 06:41
PROVIDERS: ATTEND Hospitalist
DX: M46.1 Sacroiliitis, not elsewhere classified (principal); Z88.5 Allergy status to narcotic agent
CPT/HCPCS: 27096; J2250; J1030; J3010; J2795

== ENCOUNTER → 2022-08-02 | Outpatient (CLI) | payer OTHER ==
[2022-08-02 14:19] VITALS: BP 121/63; PULSE 74; RESP 18; TEMP 98
--- NOTE | 2022-08-02 14:47 | P.PAINPG ---
PQRS Measure Charge Sheet Comment: A 42 yr old female with a history of severe and chronic low back pain secondary to lumbar DDD and spondylosis with facet arthropathy without myelopathy and L SI dysfunction presents today for evaluation s/p L SI injection. Pt states she experienced 60% relief x 3 wks s/p procedure. Pain level is currently at 4 /10 in intensity, constant, localized in the L tailbone region, sore in character w shooting towards the L buttocks and hips. Pain is provoked by standing for periods of 30 min or more. Pain is alleviated with PT in 2018, chiropractic treatments semi monthly, home exercise daily, acupuncture weekly, ice, medications (Ibu, Neurontin from her PCP), repositioning and rest. Interventional pain procedures completed include L SI injection Patient is currently on Ibuprofen, Neurontin Patient denies any side effects of the medication(s), denies excessive drowsiness or sleepiness, denies suicidal ideation and reports that the current pain medication is helping to control the pain and improve activities of daily living. Patient denies any motor or sensory deficits. Patient denies any fever or night sweats, denies any change in the bowel movements or urination. Physical Examination: -Constitutional: Cooperative. Not in acute distress . - Neurologic: Cranial nerve II to XII intact. No focal neurological deficits. - Psychatric: Alert & oriented x 3. Matching mood & appropriate affect. Judgment and insight intact. - Musculoskeletal: Cervical spine: Muscle bulk/ tone/ strength in the bilateral upper extremities normal Vertebral body tenderness to palpation over Spurling test positive Distraction test positive Facet loading test positive Thoracic spine Muscle bulk / tone/ strength in the bilateral paraspinal muscles normal Vertebral body tender to palpation over Facet loading test positive Lumbar spine: Motor bulk/ tone/ strength lower extremities , thigh and legs : 5/5 Deep tendon reflexes : Normal Knee Jerk. Normal Ankle Jerk . Vertebral body tenderness to palpation over Lumbar Facet Loading Test positive Straight Leg Raise: positive at 30 degrees right side/ left side Gaenslen's Test positive Sacral spine : Severe tenderness over the Sacroiliac joint: right side / left side Range of motion: Flexion of the lumbar spine <60 degrees Range of motion: Extension of the lumbar spine <20 degrees Gaenslen's Test positive Ailin test: positive right side / left side Thigh Thrust Test Sacral Thrust Test Assessment and plan: Chronic low back pain secondary to lumbar degenerative disc disease, spondylosis with facet arthropathy without myelopathy Pt exhibited sufficient and substantial pain relief s/p procedure. She will manage residual pain w home modalities and may return to this clinic on an as needed basis. All patient questions answered I have spent less than 30 minutes on patient care today. Dr Silver was available by phone for the evaluation of this patient. The time was used to review the medical records including relevant urine studies and Prescription history (MAPs), review of the available imaging, evaluation and examination of the patient, coordination of care with the medical staff and if applicable referring physicians, as well as creation of the medical record PQRS Narrative: Smoking Status Former smoker Home Medications: Ambulatory Orders Gabapentin [Neurontin] 300 mg PO QID 11/17/21 Ibuprofen [Motrin Ib] 200 mg PO QID 07/05/22 Unk Multi Vitamin 1 tab PO DAILY 07/05/22 Controlled Substance Measures - Controlled Substance Measures Is patient prescribed a controlled substance at discharge?: No
== END ==
LOC: PNWHC3 13:56
PROVIDERS: ATTEND Specialist
DX: M47.816 Spondylosis without myelopathy or radiculopathy, lumbar region (principal); M51.36 Other intervertebral disc degeneration, lumbar region; G89.29 Other chronic pain; Z87.891 Personal history of nicotine dependence; Z88.5 Allergy status to narcotic agent; Z88.8 Allergy status to other drugs, medicaments and biological substances; Z88.1 Allergy status to other antibiotic agents
CPT/HCPCS: 99211

== ENCOUNTER → 2022-11-27 | Day surgery (SDC) | payer OTHER ==
[~2022-11-27] MED LIST changes: +IV FLUID CONTINUATION 1,000 ML IV ONE; +LIDOCAINE 1% (10MG/ML) FOR IV START INTRADERMA PRN; +MIDAZOLAM 2 MG/2 ML VIAL ONE; +ROPIVACAINE 5 MG/ML 20 ML AMPULE ONE; +fentaNYL (PF) 50 MCG/ML 2 ML AMP ONE; +methylPREDNISolone ACETATE 80 MG/ML 1 ML VIAL ONE
[2022-11-27 12:08] VITALS: TEMP 98
--- NOTE | 2022-11-27 12:38 | P.PCN ---
Date of Procedure: 11/27/22 Procedure(s) Performed: Procedure= bilateral sacroiliac joints steroid injection under fluoroscopy guidance (fluoroscopy image stored on file in the radiology Department ) Preoperative diagnosis= 1-sacroiliitis 2-lumbar degenerative disc disease 3- lumbar facet arthropathy Postoperative diagnosis=Same as preop Diagnosis . Complication = none Condition= stable Anesthesia= moderate sedation with intravenous Versed 2 mg , and fentanyl 100 micrograms . Sedation start time:1227 Sedation end time : 1236 Indication for the procedure= patient complaining of low back pain , examination was positive for severe tenderness over the sacroiliac joints bilaterally and patient diagnosed with sacroiliitis, for this reason she was good candidate for sacroiliac joint steroid injection. Description of the procedure= procedure risk and benefits discussed with the patient, including but not limited, risk of infection and bleeding, and ALLERGIC reaction to the medication and not complete pain relief and patient agreed with the preceding patient taken to the operating room, placed in prone position or standard monitors applied to the patient then after induction of anesthesia back prepped with chlorhexidine 3 times , Then under strict sterile technique, first I did the right sacroiliac joint the which was identified under fluoroscopy guidance been local infiltration of the skin and subcu interstitial with lidocaine 1% then 22-gauge Quincke Needle advanced slowly under fluoroscopy and placed in the right sacroiliac joint needle placement confirmed with AP and oblique and lateral view and after appropriate needle placement confirmed and after negative aspiration, or heme , then Ropivacaine 0.5% 4 mL, and 40 mg of Depo-Medrol mixed together and injected in the right sacroiliac joint after negative aspiration patient tolerated the procedure well without any complication. Then the left sacroiliac joint steroid injection done under strict sterile technique local infiltration of the skin and subcu interstitial at the location of the left sacroiliac joint then a 22-gauge Quincke Needle advanced slowly under fluoroscopy time placed in the left sacroiliac joint, needle placement confirmed with AP and oblique and lateral view then after appropriate needle placement confirmed and after negative aspiration 0.5% Ropivacaine 4 mL and 40 mg of Depo-Medrol injected in the left sacroiliac joint after negative aspiration patient tolerated the procedure well that any complications and she will follow up in clinic 3 weeks
[2022-11-27 12:46] VITALS: RESP 15
--- NOTE | 2022-11-27 13:23 | FL ---
Intraoperative/procedural fluoroscopic services were provided for bilateral SI joint injection. Total fluoroscopy time is 6 seconds with a total of 2 submitted images to PACS. Total DAP 2.18. Please see the operative note for further details.
[2022-11-27 13:25] VITALS: BP 124/74; PULSE 84
== END ==
LOC: ORPAIN 11:27
PROVIDERS: ATTEND Specialist
DX: M46.1 Sacroiliitis, not elsewhere classified (principal); M51.36 Other intervertebral disc degeneration, lumbar region; M47.816 Spondylosis without myelopathy or radiculopathy, lumbar region; Z88.5 Allergy status to narcotic agent; Z88.1 Allergy status to other antibiotic agents; Z88.8 Allergy status to other drugs, medicaments and biological substances
CPT/HCPCS: 27096; J2250; J1040; J3010; J2795

== ENCOUNTER → 2023-03-11 | Outpatient (CLI) | payer OTHER ==
[2023-03-11 13:28] VITALS: BP 113/74; PULSE 97; RESP 14; TEMP 98.3
--- NOTE | 2023-03-11 14:42 | P.PAINPG ---
PQRS Measure Charge Sheet Comment: A 42 yr old female with a history of severe and chronic LBP secondary to lumbar DDD and spondylosis with facet arthropathy without myelopathy presents today for evalaution s/p BL SI injection. Admits to 80-90% pain relief x 3 mo s/p procedure. Pain level is provoked at 8/10 in intensity, constant, localized in the lumbar spine, achy in character w shooting towards the BL hips. L>R. Pain is provoked by sitting for periods of 20 min or more. Pain is alleviated with PT in 2011, massages as needed, massages weekly w last visit in Aug 2022, acupuncture treatments weekly since Jul 2022, chiropractic treatments monthly x 4 yrs, heat, ice, medications, pelvic floor therapy every day based on online exercises x 2 mo, repositioning and rest. Oswestry axial pain score of 29. Interventional pain procedures completed include BL SI (Nov 2022) Patient is currently on Neurontin, Ibu Patient denies any side effects of the medication(s), denies excessive drowsiness or sleepiness, denies suicidal ideation and reports that the current pain medication is helping to control the pain and improve activities of daily living. Patient denies any motor or sensory deficits. Patient denies any fever or night sweats, denies any change in the bowel movements or urination. Physical Examination: -Constitutional: Cooperative. Not in acute distress . - Neurologic: Cranial nerve II to XII intact. No focal neurological deficits. - Psychatric: Alert & oriented x 3. Matching mood & appropriate affect. Judgment and insight intact. - Musculoskeletal: Cervical spine: Muscle bulk/ tone/ strength in the bilateral upper extremities normal Vertebral body tenderness to palpation over Spurling test positive Distraction test positive Facet loading test positive TTP Thoracic spine Muscle bulk / tone/ strength in the bilateral paraspinal muscles normal Vertebral body tender to palpation over Facet loading test positive TTP Lumbar spine: Motor bulk/ tone/ strength lower extremities , thigh and legs : 5/5 Deep tendon reflexes : Normal Knee Jerk. Normal Ankle Jerk . Vertebral body tenderness to palpation over Lumbar Facet Loading Test positive Straight Leg Raise: positive at 30 degrees right side/ left side Gaenslen's Test positive Sacral spine : Severe tenderness over the Sacroiliac joint: right side / left side Range of motion: Flexion of the lumbar spine <60 degrees Range of motion: Extension of the lumbar spine <20 degrees Gaenslen's Test positive right side < left side Ailin test: positive right side < left side Thigh Thrust Test positive right side / left side Sacral Thrust Test positive right side / left side Assessment and plan: Chronic LBP secondary to lumbar DDD, spondylosis with facet arthropathy without myelopathy Recommendation of BL SI injection #2. May need a series of injections for optimal pain relief. Risks, benefits of procedure discussed and pt verbalized understanding. Admits to anticoagulant use or medical history of diabetes. Protocol for discontinuation/ continuation of medications bertha procedure discussed. All questions answered. I have spent less than 30 minutes on patient care today. Dr Silver was available by phone for the evaluation of this patient. The time was used to review the medical records including relevant urine studies and Prescription history (MAPs), review of the available imaging, evaluation and examination of the patient, coordination of care with the medical staff and if applicable referring physicians, as well as creation of the medical record PQRS Narrative: Smoking Status Former smoker Home Medications: Ambulatory Orders Gabapentin [Neurontin] 300 mg PO QID 11/17/21 Ibuprofen [Motrin Ib] 200 mg PO QID 07/05/22 Unk Multi Vitamin 1 tab PO DAILY 07/05/22 Controlled Substance Measures - Controlled Substance Measures Is patient prescribed a controlled substance at discharge?: No
== END ==
LOC: PNWHC3 13:06
PROVIDERS: ATTEND Specialist
DX: M51.36 Other intervertebral disc degeneration, lumbar region (principal); M47.816 Spondylosis without myelopathy or radiculopathy, lumbar region; G89.29 Other chronic pain; Z87.891 Personal history of nicotine dependence; Z88.5 Allergy status to narcotic agent; Z88.1 Allergy status to other antibiotic agents; Z88.8 Allergy status to other drugs, medicaments and biological substances
CPT/HCPCS: 99211

== ENCOUNTER → 2023-04-11 | Day surgery (SDC) | payer OTHER ==
[2023-04-08 09:52] VITALS: BMI 37.8
[~2023-04-11] MED LIST changes: +IOPAMIDOL M200 10 ML VIAL ONE; -IV FLUID CONTINUATION 1,000 ML IV ONE; -LACTATED RINGERS 1,000 ML IV SCH; -LIDOCAINE 1% (10MG/ML) FOR IV START INTRADERMA PRN; -MIDAZOLAM 2 MG/2 ML VIAL ONE; -fentaNYL (PF) 50 MCG/ML 2 ML AMP ONE
[2023-04-11 08:49] VITALS: TEMP 98
--- NOTE | 2023-04-11 09:27 | P.PCN ---
Date of Procedure: 04/11/23 Procedure(s) Performed: Procedure= bilateral sacroiliac joints steroid injection under fluoroscopy guidance (fluoroscopy image stored on file in the radiology Department ) Preoperative diagnosis= 1-sacroiliitis 2-lumbar degenerative disc disease 3- lumbar facet arthropathy Postoperative diagnosis=Same as preop Diagnosis . Complication = none Condition= stable Anesthesia= ropivacaine 0.5% 4 ml only for skin and subcu infiltration Indication for the procedure= patient complaining of low back pain , examination was positive for severe tenderness over the sacroiliac joints bilaterally and patient diagnosed with sacroiliitis, for this reason she was good candidate for sacroiliac joint steroid injection. Description of the procedure= procedure risk and benefits discussed with the patient, including but not limited, risk of infection and bleeding, and ALLERGIC reaction to the medication and not complete pain relief and patient agreed with the preceding patient taken to the operating room, placed in prone position or standard monitors applied to the patient then after induction of anesthesia back prepped with chlorhexidine 3 times , Then under strict sterile technique, first I did the right sacroiliac joint the which was identified under fluoroscopy guidance been local infiltration of the skin and subcu interstitial with ropivacaine 0.5 % 2 ml then 22-gauge Quincke Needle advanced slowly under fluoroscopy and placed in the right sacroiliac joint needle placement confirmed with AP and oblique and lateral view and after appropriate needle placement confirmed and after negative aspiration, or heme , then Ropivacaine 0.5% 2 mL, and 40 mg of Depo-Medrol mixed together and injected in the right sacroiliac joint after negative aspiration patient tolerated the procedure well without any complication. Then the left sacroiliac joint steroid injection done under strict sterile technique local infiltration of the skin and subcu interstitial at the location of the left sacroiliac joint then a 22-gauge Quincke Needle advanced slowly under fluoroscopy time placed in the left sacroiliac joint, needle placement confirmed with AP and oblique and lateral view then after appropriate needle placement confirmed and after negative aspiration 0.5% Ropivacaine 2 mL and 40 mg of Depo-Medrol injected in the left sacroiliac joint after negative aspiration patient tolerated the procedure well that any complications and she will follow up in clinic 3 weeks
[2023-04-11 09:31] VITALS: BP 1123/76; PULSE 71; RESP 14
--- NOTE | 2023-04-11 09:36 | FL ---
Intraoperative/procedural fluoroscopic services were provided. Total fluoroscopy time is 3.9 seconds with a total of 2 submitted images to PACS. Please see the operative/procedural note for further deta ils. DAP: [id number]
== END ==
LOC: ORPAIN 08:20
PROVIDERS: ATTEND Specialist
DX: M46.1 Sacroiliitis, not elsewhere classified (principal); M51.16 Intervertebral disc disorders with radiculopathy, lumbar region; M47.816 Spondylosis without myelopathy or radiculopathy, lumbar region; Z79.899 Other long term (current) drug therapy; Z90.710 Acquired absence of both cervix and uterus
CPT/HCPCS: 27096; J1040; Q9966; J2795

== ENCOUNTER → 2023-04-12 | Outpatient (CLI) | payer OTHER ==
--- NOTE | 2023-04-12 22:32 | MR ---
EXAMINATION TYPE: MR pelvis wo/w con DATE OF EXAM: 04/12/2023 COMPARISON: MRI 11/09/2021., CT 11/16/2021 CLINICAL INDICATION:Female, 43 years old with history of N93.0; Post hysterectomy- Pain right side an d vaginal bleeding TECHNIQUE: Triplane multisequence imaging was performed of the pelvis. IV Contrast: 10ml cc Gadavist FINDINGS: Reproductive: Vagina: Unremarkable. Uterus: Uterus is surgically absent. Remnant cervix remains with multiple nabothian cysts. No abnorma l postcontrast enhancement. Ovaries: The left ovary measures 1.9 x 2.0 x 2.9 cm. The right ovary is not definitively visualized. Bladder: Unremarkable. Bowel: Unremarkable as visualized. Peritoneum: No free fluid identified. Lymph nodes: No evidence of adenopathy. Vasculature: Unremarkable. Musculoskeletal: Bone marrow signal is within normal signal intensity. Abdominal wall/soft tissues: Unremarkable. IMPRESSION: 1. Postsurgical changes with hysterectomy with remnant cervix and multiple nabothian cysts. No obvio us organizing fluid collection visualized. No obvious cause for patient's right-sided pain 2. Nonvisualization of right ovary. The left ovary demonstrates follicle changes.
== END | disposition home or self-care (01) ==
LOC: RADMRIMAIN 20:45
PROVIDERS: ATTEND Obstetrics & Gynecology
DX: N88.8 Other specified noninflammatory disorders of cervix uteri (principal); N93.0 Postcoital and contact bleeding; N93.9 Abnormal uterine and vaginal bleeding, unspecified; Z90.710 Acquired absence of both cervix and uterus
CPT/HCPCS: 72197; A9585